=== PATIENT | female | born 1970 | race Caucasian/White ===

== ENCOUNTER 2017-07-23 02:36 | Emergency (ER) | payer MEDICARE ==
[2017-07-23] MEDS ORDERED: Morphine 2 MG/ML SYRINGE ONE (02:58)
[2017-07-23] MEDS ORDERED: Ondansetron HCl/PF 4 MG/2 ML Vial ONE (02:58)
[2017-07-23 03:24] LABS: #Lymphocytes 2.2 thou/uL (1.20-3.40); #Monocytes 0.5 thou/uL (0.11-0.59); #Neutrophils 5.5 thou/uL (1.40-6.50); %Basophils 0.2 % (0.0-1.0); %Eosinophils 0.5 % (0.0-10.0); %Lymphocytes 26.3 % (21.0-51.0); %Monocytes 6.4 % (0.0-10.0); Hematocrit 38.2 % (36.0-47.0); Mean Platelet Volume 7.8 fL (7.4-10.4); Red Blood Cell (RBC) Count 4.21 mill/uL (4.20-5.40); White Blood Cell (WBC) Count 8.2 thou/uL (4.8-10.8)
[2017-07-23 03:43] LABS: ALT (SGPT) Less than 7 U/L (8-55); AST (SGOT) 11 U/L (5-34); Alkaline Phosphatase 77 U/L (40-150); Anion Gap 11 mmol/L (10-20); BUN (Urea Nitrogen) 15 mg/dL (7.0-18.7); Bilirubin, Total 0.5 mg/dL (0.2-1.2); Calc. Creatinine Clearance 0 mL/min (70-130); Calcium 9.9 mg/dL (7.8-10.44); Carbon Dioxide 29 mmol/L (22-29); Chloride 100 mmol/L (98-107); Estimated GFR-MDRD 82; Globulin 2.9 g/dL (2.4-3.5); Lipase 6 U/L (8-78); Magnesium 1.9 mg/dL (1.6-2.6); Protein, Total 7.2 g/dL (6.0-8.3)
[2017-07-23] MEDS ORDERED: Ketorolac Tromethamine 30 MG/ML VIAL ONE (03:48)
[2017-07-23 04:33] LABS: Bilirubin Negative (Negative); Blood, Urine Large (Negative); Glucose, Urine (Dipstick) Negative (Negative); Ketone, Urine 15 mg/dL (Negative); Nitrite Negative (Negative); Protein, Urine (Dipstick) 30 mg/dL (Neg-Trace)
[2017-07-23 04:38] LABS: Bacteria/HPF None Seen HPF (None Seen); Hyaline Casts/LPF 0-3 HYALINE CAST LPF (0-3 Hyaline); RBC/HPF GREATER THAN 50-TNTC HPF (0-3); Squamous Epithelial None Seen HPF (0-3)
[2017-07-23] MEDS ORDERED: Sodium Chloride 0.9% 100 ML ONE (05:21)
[2017-07-23] MEDS ORDERED: cefTRIAXone\\ROCEPHIN 1 GM VIAL ONE (05:21)
--- NOTE | 2017-07-23 11:01 | CT ---
PRELIMINARY REPORT/[facility]/EMERGENCY AFTER HOURS PROCEDURE: EXAM: CT Abdomen and Pelvis With Intravenous Contrast EXAM DATE/TIME: Exam ordered 07/23/2017 3:58 AM CLINICAL HISTORY: 47 years old, female; Pain; Abdominal pain; Generalized; Patient HX: F47 presents to ed for abdomina l pain. Pt reports abdominal pain that started 2-3 hours ago and radiates to her back. Pt reports na usea and vomiting the past few days. Pt denies diarrhea. Pt reports she was real nauseated so she la id down in bed and began to notice increasingly worse abdominal pain. Pt denies HX of similar sympto ms. Pt denies numbness/tingling in legs. TECHNIQUE: Axial computed tomography images of the abdomen and pelvis with intravenous contrast. Coronal reformatted images were created and reviewed. CONTRAST: 95 mL of ISOVUE 370 administered intravenously. COMPARISON: No relevant prior studies available. FINDINGS: Lower thorax: No acute findings. ABDOMEN: Liver: Unremarkable. No mass. Gallbladder and bile ducts: Prior cholecystectomy. There is intra-and extrahepatic biliary ductal di latation. Findings are likely a result of age and postcholecystectomy state given that there is no v isible obstructing choledocholithiasis or pancreatic head mass and the distal CBD tapers normally as it approaches the duodenum. Pancreas: Unremarkable. No mass. No ductal dilation. Spleen: Unremarkable. No splenomegaly. Adrenals: Unremarkable. No mass. Kidneys and ureters: 4 mm obstructing stone in the mid right ureter causing moderate obstructive uro ahsley. Stomach and bowel: Unremarkable. No obstruction. No mucosal thickening. Appendix: Normal appendix. PELVIS: Bladder: Unremarkable. No mass. Reproductive: Prior hysterectomy. ABDOMEN and PELVIS: Intraperitoneal space: Unremarkable. No free air. No significant fluid collection. Bones/joints: No acute fracture. No dislocation. Soft tissues: Unremarkable. Vasculature: Unremarkable. No abdominal aortic aneurysm. Lymph nodes: Unremarkable. No enlarged lymph nodes. IMPRESSION: 4 mm obstructing stone in the mid right ureter causing moderate obstructive uropathy. Thank you for allowing us to participate in the care of your patient. Dictated and Authenticated by: Win Ott MD 07/23/2017 4:31 AM Central Time ([place] \T\ [place]) FINAL REPORT CT ABDOMEN AND PELVIS WITH CONTRAST: HISTORY: Right lower quadrant pain, nausea, and vomiting. COMPARISON: CT stone protocol without contrast 11/13/14. FINDINGS/IMPRESSION: Findings and impression are concordant with the preliminary report. The numerous old compression fr actures are similar. POS: [facility]
[2017-07-23] MEDS ORDERED: ISOVUE-370 76%-LOCM 1 ML ONE (16:05)
== END 2017-07-23 07:33 | disposition home or self-care (01) ==
LOC: ERS 02:36
DX: N20.1 Calculus of ureter (principal); Z79.891 Long term (current) use of opiate analgesic; Z79.899 Other long term (current) drug therapy
CPT/HCPCS: 74177; 80053; 81003; 81015; 83690; 83735; 84702; 85025; 93005; 96361; 96365; 96375; J0696; J1170; J1885; J2270; J2405; J7050

== ENCOUNTER 2022-09-07 09:06 | Inpatient (IN) | payer MEDICARE ==
[2022-09-07 09:44] LABS: Base Excess -25.2 mEq/L (-2.0 to +3.0); Calcium, Ionized (venous) 1.21 mmol/L (1.16-1.32); Chloride (VBG) 107 mmol/L (98-106); Hemoglobin (Hb) 12.7 g/dL (11.7-16.0)
[2022-09-07 09:45] LABS: Actual Bicarbonate (HCO3v) 4 mEq/L (22-28); pH (venous) 7.01 (7.32-7.43)
[2022-09-07 09:47] LABS: Hemoglobin 11.7 g/dL (12.0-16.0); Mean Corpuscular HGB CONC 33.4 g/dL (32.0-36.0); Mean Corpuscular Hemoglobin 30.3 pg (27.0-31.0); Mean Corpuscular Volume 90.5 fl (78.0-98.0); Mean Platelet Volume 8.7 fL (7.4-10.4); Platelet Count 280 10x3/uL (130-400); RBC Distribution Width 12.3 % (11.5-14.5); Red Blood Cell (RBC) Count 3.87 mill/uL (4.20-5.40); White Blood Cell (WBC) Count 30.8 10x3/uL (4.8-10.8)
[2022-09-07 10:10] LABS: ALT (SGPT) 26 U/L (8-55); AST (SGOT) 42 U/L (5-34); Albumin 3.8 g/dL (3.5-5.0); Alkaline Phosphatase 93 U/L (40-110); BUN (Urea Nitrogen) 29 mg/dL (9.8-20.1); Bilirubin, Total 0.4 mg/dL (0.2-1.2); Calc. Creatinine Clearance 0 mL/min (70-130); Calcium 9.3 mg/dL (7.8-10.44); Chloride 108 mmol/L (98-107); Estimated GFR 19; Globulin 2.4 g/dL (2.4-3.5); Glucose 63 mg/dL (70-105); Protein, Total 6.2 g/dL (6.0-8.3); Sodium 134 mmol/L (136-145)
[2022-09-07 10:11] LABS: Band 14 % (5-11); Hypochromia SLIGHT = 6-15 cells (100X) (0-5/hpf); Lymphocytes 7 % (21-51); MDiff Complete? YES; Monocytes 14 % (0-10); Neutrophil 65 % (42-75); Platelet Morphology Comment Appears Adequate
[2022-09-07 10:14] LABS: Carbon Dioxide Less than 8 mmol/L (22-29)
[2022-09-07 10:18] LABS: Acetaminophen Less than 10.0 mcg/mL (10.0-30.0); Alcohol Less than 10 mg/dL (Less than 10); CK (CPK) 1665 U/L (29-168); Magnesium 2.8 mg/dL (1.6-2.6); Salicylate Less than 8.0 mg/dL (15.0-30.0)
[2022-09-07 10:49] LABS: CKMB 9.2 ng/mL (0-6.6)
[2022-09-07] MEDS ORDERED: Iopamidol-370 76% 500 ML 1 ML ONE (10:52)
[2022-09-07] MEDS ORDERED: Piperacillin/Tazobactam 4.5 GM VIAL ONE (11:02)
[2022-09-07 11:17] LABS: Lipase 2119 U/L (8-78)
[2022-09-07 13:00] LABS: Base Excess -24.8 mEq/L (-2.0 to +3.0); Calcium, Ionized (venous) 1.03 mmol/L (1.16-1.32); Chloride (VBG) 110 mmol/L (98-106); Hemoglobin (Hb) 12.9 g/dL (11.7-16.0); Potassium (VBG) 4.19 mmol/L (3.70-5.30); Sodium 136.6 mmol/L (133-146)
[2022-09-07 13:06] LABS: Actual Bicarbonate (HCO3v) 3 mEq/L (22-28); pH (venous) 7.06 (7.32-7.43)
[2022-09-07] MEDS ORDERED: Sodium Bicarb 50 MEQ/50 ML VIAL ONE ×2 (13:12→16:30)
[2022-09-07 13:35] LABS: ALT (SGPT) 31 U/L (8-55); AST (SGOT) 67 U/L (5-34); Albumin 3.6 g/dL (3.5-5.0); Alkaline Phosphatase 93 U/L (40-110); BUN (Urea Nitrogen) 30 mg/dL (9.8-20.1); Bilirubin, Total 0.4 mg/dL (0.2-1.2); Calc. Creatinine Clearance 0 mL/min (70-130); Calcium 9.1 mg/dL (7.8-10.44); Chloride 111 mmol/L (98-107); Estimated GFR 21; Globulin 2.3 g/dL (2.4-3.5); Glucose 65 mg/dL (70-105); Potassium 4.3 mmol/L (3.5-5.1); Protein, Total 5.9 g/dL (6.0-8.3); Sodium 134 mmol/L (136-145)
[2022-09-07 13:38] LABS: Bacteria/HPF 2+ HPF (None Seen); Bilirubin Negative (Negative); Blood, Urine 3+ (Negative); Glucose, Urine (Dipstick) Normal (Negative); Ketone, Urine 100 mg/dL (Negative); Leukocyte 500 Leu/uL (Negative); Nitrite Negative (Negative); Protein, Urine (Dipstick) 100 mg/dL (Neg-Trace); Specific Gravity, Urine 1.023 (1.002-1.036); Squamous Epithelial 0-3 HPF (0-3); Urobilinogen Normal mg/dL (Less than 2); WBC/HPF 21-50 HPF (0-3); pH, Urine 5.5 (5.0-9.0)
[2022-09-07 13:40] LABS: Carbon Dioxide Less than 8 mmol/L (22-29)
[2022-09-07 13:44] LABS: Amphetamine Not Detected (NotDetected); Barbiturates Screen Not Detected (NotDetected); Benzodiazepine Screen Detected (NotDetected); Cocaine Metabolite Screen Not Detected (NotDetected); Methadone Not Detected (NotDetected); Methamphetamine Not Detected (NotDetected); Opiate Screen Not Detected (NotDetected); Oxycodone Screen Not Detected (NotDetected); Phencyclidine (PCP) Not Detected (NotDetected); THC/Cannabinoid Screen Not Detected (NotDetected); Tricyclic Screen Not Detected (NotDetected)
[2022-09-07 13:45] LABS: Clarity Hazy (Clear)
[2022-09-07] MEDS ORDERED: Sodium Bicarbonate 150 MEQ in Dextrose 5% in Water 1,000 ML IV SCH ×2 (13:45→15:30)
[2022-09-07 15:21] LABS: Actual Bicarbonate (HCO3v) 6 mEq/L (22-28); Analyzer IN Cardio ER; Base Excess -21.1 mEq/L (-2.0 to +3.0); Calcium, Ionized (venous) 1.32 mmol/L (1.16-1.32); Chloride (VBG) 109 mmol/L (98-106); Hemoglobin (Hb) 11.9 g/dL (11.7-16.0); Potassium (VBG) 3.67 mmol/L (3.70-5.30); Sodium 138.7 mmol/L (133-146); pH (venous) 7.13 (7.32-7.43)
[2022-09-07] MEDS ORDERED: SODIUM BICARBONATE IV SCH (15:30)
[2022-09-07] MEDS ORDERED: WATER IV SCH (15:30)
[2022-09-07] MEDS ORDERED: DEXTROSE 5% IV SCH (15:30)
[2022-09-07 15:43] LABS: Troponin I 0.131 ng/mL (< 0.028)
[2022-09-07 15:48] LABS: BUN (Urea Nitrogen) 34 mg/dL (9.8-20.1); Calc. Creatinine Clearance 0 mL/min (70-130); Calcium 8.9 mg/dL (7.8-10.44); Chloride 112 mmol/L (98-107); Estimated GFR 22; Glucose 86 mg/dL (70-105); Potassium 3.6 mmol/L (3.5-5.1); Sodium 136 mmol/L (136-145)
[2022-09-07 15:52] LABS: Carbon Dioxide Less than 8 mmol/L (22-29)
[2022-09-07 16:11] LABS: Base Excess -21.2 mEq/L (-2.0 to +3.0); Chloride (VBG) 110 mmol/L (98-106); Hemoglobin (Hb) 12.5 g/dL (11.7-16.0); Potassium (VBG) 3.81 mmol/L (3.70-5.30); Sodium 139.7 mmol/L (133-146)
[2022-09-07 16:14] LABS: Actual Bicarbonate (HCO3v) 7 mEq/L (22-28); pH (venous) 7.11 (7.32-7.43)
[2022-09-07 20:17] LABS: Troponin I 0.155 ng/mL (< 0.028)
[2022-09-07 20:21] LABS: Anion Gap 22 mmol/L (10-20); BUN (Urea Nitrogen) 34 mg/dL (9.8-20.1); Calc. Creatinine Clearance 0 mL/min (70-130); Carbon Dioxide 10 mmol/L (22-29); Chloride 110 mmol/L (98-107); Estimated GFR 26; Glucose 127 mg/dL (70-105); Potassium 3.1 mmol/L (3.5-5.1); Sodium 139 mmol/L (136-145)
[2022-09-07] MEDS ORDERED: Sodium Chloride 0.9% 1,000 ML IV SCH (20:30)
[2022-09-07 20:38] LABS: Analyzer IN Cardio ER; Base Excess (BEa) -11.1 mEq/L (-2.0 to +3.0); Calcium, Ionized (arterial) 1.25 mmol/L (1.12-1.30); Carboxyhemoglobin (COHb) 0.2 gm% (0.0-3.0); Hemoglobin (Hb) 11.4 g/dL (12.0-16.0); Potassium - ABG Lab 2.78 mmol/L (3.70-5.30); pH, Arterial 7.37 (7.35-7.45)
[2022-09-07 20:47] LABS: Actual Bicarbonate (HCO3a) 12.4 mEq/L (22-28); CO2 Tension 22.1 mmHg (35.0-45.0); Puncture Site LRA
[2022-09-07 20:48] LABS: ALV-art Gradient 52.105 mmHg (0-20)
[2022-09-07] MEDS ORDERED: Famotidine/PF 20 mg/2ml Vial SLOW IVP SCH (21:00)
[2022-09-07] MEDS ORDERED: VANCOMYCIN 1.25 GM/250 ML BAG 1.25 GM in Premix Bag 1 BAG IVPB SCH ×2 (21:00→22:15)
[2022-09-07] MEDS ORDERED: Metoprolol Tartrate 5 MG/5 ML VIAL ONE (22:01)
[2022-09-07] MEDS: Metoprolol Tartrate 5 MG/5 ML VIAL IVP PRN (22:07)
[2022-09-07] MEDS ORDERED: Heparin 10,000 UNITS/ 10 ML VIAL ONE (22:43)
[2022-09-07] MEDS ORDERED: Pantoprazole 40 MG VIAL ONE (22:43)
[2022-09-07] MEDS: Pantoprazole 40 MG VIAL IVP SCH (22:59)
[2022-09-07] MEDS ORDERED: Cefepime 1 GM in Sodium Chloride 0.9% 100 ML IVPB SCH (23:00)
[2022-09-07] MEDS: Heparin 5,000 UNITS/ML VIAL SC SCH (23:01)
[2022-09-07] MEDS: metroNIDAZOLE 250 MG in Admixture Fee 2 EACH IVPB SCH (23:06)
[2022-09-07] MEDS ORDERED: Potassium Chloride 20 MEQ/100 ML PREMIX BAG ONE (23:09)
[2022-09-07] MEDS: Potassium Chloride 20 MEQ in Premix Bag 1 BAG IVPB SCH (23:14)
[2022-09-08] MEDS ORDERED: Metoprolol Tartrate 5 MG/5 ML VIAL ONE ×2 (00:15→01:55)
[2022-09-08] MEDS: Metoprolol Tartrate 5 MG/5 ML VIAL IVP PRN (00:51)
[2022-09-08] MEDS ORDERED: Cefepime 1 GM VIAL ONE (00:52)
[2022-09-08 01:17] LABS: Anion Gap 19 mmol/L (10-20); BUN (Urea Nitrogen) 33 mg/dL (9.8-20.1); Calc. Creatinine Clearance 36 mL/min (70-130); Calcium 8.7 mg/dL (7.8-10.44); Carbon Dioxide 13 mmol/L (22-29); Chloride 113 mmol/L (98-107); Estimated GFR 30; Glucose 124 mg/dL (70-105); Potassium 3.1 mmol/L (3.5-5.1); Sodium 142 mmol/L (136-145)
[2022-09-08] MEDS ORDERED: Metoprolol Tartrate 5 MG/5 ML VIAL IVP PRN (01:28)
[2022-09-08] MEDS ORDERED: Electrolyte Replacement Protocol 1 EACH FS PRN (01:30)
[2022-09-08] MEDS: Sodium Bicarbonate 150 MEQ in Dextrose 5% in Water 1,000 ML IV SCH ×3 (02:04→18:16)
[2022-09-08] MEDS: Heparin 5,000 UNITS/ML VIAL SC SCH ×4 (03:18→20:15)
[2022-09-08] MEDS: Potassium Chloride 20 MEQ in Premix Bag 1 BAG IVPB SCH ×7 (03:54→15:05)
[2022-09-08 04:36] LABS: ALT (SGPT) 44 U/L (8-55); AST (SGOT) 99 U/L (5-34); Albumin 3.1 g/dL (3.5-5.0); Alkaline Phosphatase 79 U/L (40-110); Anion Gap 17 mmol/L (10-20); BUN (Urea Nitrogen) 34 mg/dL (9.8-20.1); Bilirubin, Total 0.7 mg/dL (0.2-1.2); Calc. Creatinine Clearance 38 mL/min (70-130); Calcium 8.9 mg/dL (7.8-10.44); Carbon Dioxide 14 mmol/L (22-29); Chloride 112 mmol/L (98-107); Estimated GFR 33; Globulin 2.1 g/dL (2.4-3.5); Glucose 168 mg/dL (70-105); Potassium 2.9 mmol/L (3.5-5.1); Protein, Total 5.2 g/dL (6.0-8.3); Sodium 140 mmol/L (136-145)
[2022-09-08 05:02] LABS: SARS-CoV-2 NAA Rapid Test Not Detected (NotDetected)
[2022-09-08 05:15] LABS: #Lymphocytes 1.1 thou/uL (1.20-3.40); #Monocytes 1.7 thou/uL (0.11-0.59); #Neutrophils 15.6 thou/uL (1.40-6.50); %Basophils 0.1 % (0.0-1.0); %Eosinophils 0.1 % (0.0-10.0); %Monocytes 9.4 % (0.0-10.0); %Neutrophils 84.4 % (42.0-75.0); Mean Corpuscular HGB CONC 35.2 g/dL (32.0-36.0); Mean Corpuscular Hemoglobin 30.8 pg (27.0-31.0); Mean Corpuscular Volume 87.6 fl (78.0-98.0); Mean Platelet Volume 8.9 fL (7.4-10.4); Platelet Count 156 10x3/uL (130-400); RBC Distribution Width 12.2 % (11.5-14.5); White Blood Cell (WBC) Count 18.5 10x3/uL (4.8-10.8)
[2022-09-08] MEDS: metroNIDAZOLE 250 MG in Admixture Fee 2 EACH IVPB SCH ×3 (06:54→22:02)
[2022-09-08] MEDS: Pantoprazole 40 MG VIAL IVP SCH ×2 (09:16→19:28)
[2022-09-08] MEDS: Cefepime 1 GM in Sodium Chloride 0.9% 100 ML IVPB SCH ×2 (12:03→22:43)
[2022-09-08] MEDS: Acetaminophen 325 MG TAB PO PRN ×2 (15:06→23:19)
[2022-09-08] MEDS ORDERED: NIFEdipine XL 60 MG TAB PO SCH (16:32)
[2022-09-08 17:42] LABS: Anion Gap 12 mmol/L (10-20); BUN (Urea Nitrogen) 30 mg/dL (9.8-20.1); Calc. Creatinine Clearance 57 mL/min (70-130); Calcium 8.7 mg/dL (7.8-10.44); Carbon Dioxide 26 mmol/L (22-29); Chloride 104 mmol/L (98-107); Estimated GFR 53; Glucose 199 mg/dL (70-105); Potassium 3.2 mmol/L (3.5-5.1); Sodium 139 mmol/L (136-145)
[2022-09-08] MEDS: Ondansetron PF 4 MG/2 ML Vial IVP PRN (19:28)
[2022-09-08] MEDS: Trospium 20 MG TAB PO SCH (20:15)
[2022-09-08] MEDS: Metoprolol Tartrate 25 MG TAB PO SCH (20:15)
[2022-09-08] MEDS ORDERED: Vancomycin HCl 500 MG in Sodium Chloride 0.9% 100 ML IVPB SCH (21:00)
[2022-09-08] MEDS ORDERED: Sodium Chloride 0.9% 1,000 ML IV SCH (21:15)
[2022-09-09 04:36] LABS: Anion Gap 10 mmol/L (10-20); BUN (Urea Nitrogen) 27 mg/dL (9.8-20.1); Calc. Creatinine Clearance 64 mL/min (70-130); Calcium 8.8 mg/dL (7.8-10.44); Carbon Dioxide 33 mmol/L (22-29); Chloride 100 mmol/L (98-107); Estimated GFR 69; Glucose 151 mg/dL (70-105); Lipase 535 U/L (8-78); Potassium 2.8 mmol/L (3.5-5.1); Sodium 140 mmol/L (136-145)
[2022-09-09 04:53] LABS: HBSAg Index 0.65 S/CO (0-0.99); Hep B Surf Ag Non-Reactive S/CO (NonReactive); Hep C IgG Ab Non-Reactive (NonReactive); Hep C Index 0.05 S/CO (0-0.79)
[2022-09-09] MEDS: Acetaminophen 325 MG TAB PO PRN ×3 (05:43→16:46)
[2022-09-09] MEDS: metroNIDAZOLE 250 MG in Admixture Fee 2 EACH IVPB SCH ×3 (05:43→21:18)
[2022-09-09 05:56] LABS: Hep B Surf AB Reactive (NonReactive)
[2022-09-09] MEDS: Potassium Chloride 20 MEQ TAB PO SCH ×3 (08:32→19:27)
[2022-09-09] MEDS: Trospium 20 MG TAB PO SCH ×2 (08:32→19:28)
[2022-09-09] MEDS: Heparin 5,000 UNITS/ML VIAL SC SCH ×3 (08:32→19:27)
[2022-09-09] MEDS: NIFEdipine XL 30 MG TAB PO SCH (08:32)
[2022-09-09] MEDS: DULoxetine 60 MG CAP PO SCH (08:32)
[2022-09-09] MEDS: Metoprolol Tartrate 25 MG TAB PO SCH ×2 (08:32→19:28)
[2022-09-09] MEDS: Pantoprazole 40 MG VIAL IVP SCH (08:33)
[2022-09-09] MEDS: Cefepime 1 GM in Sodium Chloride 0.9% 100 ML IVPB SCH ×2 (11:56→22:03)
[2022-09-09 17:07] LABS: Bilirubin Negative (Negative); Blood, Urine 1+ (Negative); Clarity Clear (Clear); Glucose, Urine (Dipstick) 70 mg/dL (Negative); Ketone, Urine Negative (Negative); Leukocyte 250 Leu/uL (Negative); Nitrite Negative (Negative); Protein, Urine (Dipstick) 30 mg/dL (Neg-Trace); RBC/HPF 0-3 HPF (0-3); Specific Gravity, Urine 1.011 (1.002-1.036); Squamous Epithelial 0-3 HPF (0-3); Urobilinogen Normal mg/dL (Less than 2)
[2022-09-09 17:08] LABS: Bacteria/HPF 1+ HPF (None Seen)
[2022-09-09] MEDS ORDERED: Buprenorphine HCl 2 MG SL TAB PO SCH ×2 (18:45→21:00)
[2022-09-09] MEDS: Ondansetron PF 4 MG/2 ML Vial IVP PRN (19:27)
[2022-09-09] MEDS: Mirtazapine 30 MG TAB PO SCH (20:57)
[2022-09-10] MEDS: Potassium Chloride 20 MEQ TAB PO SCH (01:24)
[2022-09-10] MEDS: metroNIDAZOLE 250 MG in Admixture Fee 2 EACH IVPB SCH ×3 (05:08→21:08)
[2022-09-10 05:18] VITALS: BMI 21.8
[2022-09-10 07:40] LABS: Anion Gap 11 mmol/L (10-20); BUN (Urea Nitrogen) 22 mg/dL (9.8-20.1); Calc. Creatinine Clearance 80 mL/min (70-130); Calcium 9.2 mg/dL (7.8-10.44); Carbon Dioxide 27 mmol/L (22-29); Chloride 102 mmol/L (98-107); Estimated GFR 93; Glucose 117 mg/dL (70-105); Potassium 4.6 mmol/L (3.5-5.1); Sodium 135 mmol/L (136-145)
[2022-09-10] MEDS: Buprenorphine HCl 2 MG SL TAB PO SCH ×2 (09:12→20:21)
[2022-09-10] MEDS: Trospium 20 MG TAB PO SCH ×2 (09:13→20:22)
[2022-09-10] MEDS: DULoxetine 60 MG CAP PO SCH (09:13)
[2022-09-10] MEDS: NIFEdipine XL 30 MG TAB PO SCH (09:13)
[2022-09-10] MEDS: Ondansetron PF 4 MG/2 ML Vial IVP PRN ×2 (09:16→14:51)
[2022-09-10] MEDS: Metoprolol Tartrate 25 MG TAB PO SCH ×2 (09:16→20:25)
[2022-09-10] MEDS: Heparin 5,000 UNITS/ML VIAL SC SCH ×3 (09:16→20:20)
[2022-09-10] MEDS: FLUoxetine HCl 20 MG CAP PO SCH (09:16)
[2022-09-10] MEDS: Acetaminophen 325 MG TAB PO PRN ×2 (09:17→20:22)
[2022-09-10 09:32] LABS: Band 18 % (5-11); Eosinophils 1 % (0-10); Hemoglobin 9.5 g/dL (12.0-16.0); Lymphocytes 13 % (21-51); MDiff Complete? YES; Mean Corpuscular HGB CONC 34.8 g/dL (32.0-36.0); Mean Corpuscular Hemoglobin 30.9 pg (27.0-31.0); Mean Corpuscular Volume 88.7 fl (78.0-98.0); Mean Platelet Volume 9.5 fL (7.4-10.4); Monocytes 3 % (0-10); Neutrophil 64 % (42-75); Platelet Count 74 10x3/uL (130-400); Platelet Morphology Comment Appears Decreased; Polychromasia SLIGHT = 2-3 cells (100X) (0-2/hpf); RBC Distribution Width 12.6 % (11.5-14.5); Reactive Lymphocytes 1 % (0-10); Red Blood Cell (RBC) Count 3.07 mill/uL (4.20-5.40); White Blood Cell (WBC) Count 14.8 10x3/uL (4.8-10.8)
[2022-09-10] MEDS: Sodium Chloride 0.9% 1,000 ML IV SCH (10:26)
[2022-09-10] MEDS: Cefepime 2 GM in Sodium Chloride 0.9% 100 ML IVPB SCH ×2 (10:27→22:02)
[2022-09-10] MEDS: Mirtazapine 30 MG TAB PO SCH (20:21)
[2022-09-10] MEDS ORDERED: traZODone HCl 50 MG TAB PO ONE (21:00)
[2022-09-11] MEDS: metroNIDAZOLE 250 MG in Admixture Fee 2 EACH IVPB SCH (05:53)
[2022-09-11] MEDS: Ondansetron PF 4 MG/2 ML Vial IVP PRN ×2 (05:54→12:51)
[2022-09-11] MEDS: Acetaminophen 325 MG TAB PO PRN ×3 (05:54→19:54)
[2022-09-11 07:10] LABS: Anion Gap 12 mmol/L (10-20); BUN (Urea Nitrogen) 16 mg/dL (9.8-20.1); Calc. Creatinine Clearance 81 mL/min (70-130); Carbon Dioxide 23 mmol/L (22-29); Chloride 103 mmol/L (98-107); Estimated GFR 95; Glucose 84 mg/dL (70-105); Potassium 4.1 mmol/L (3.5-5.1); Sodium 134 mmol/L (136-145)
[2022-09-11] MEDS: Trospium 20 MG TAB PO SCH ×2 (08:32→19:55)
[2022-09-11] MEDS: Heparin 5,000 UNITS/ML VIAL SC SCH ×3 (08:32→20:00)
[2022-09-11] MEDS: DULoxetine 60 MG CAP PO SCH (08:33)
[2022-09-11] MEDS: FLUoxetine HCl 20 MG CAP PO SCH (08:33)
[2022-09-11] MEDS: NIFEdipine XL 30 MG TAB PO SCH (08:33)
[2022-09-11] MEDS: Polyethylene Glycol 3350 17 GM Packet PO SCH (08:33)
[2022-09-11] MEDS: Metoprolol Tartrate 25 MG TAB PO SCH ×2 (08:33→20:43)
[2022-09-11] MEDS: Buprenorphine HCl 2 MG SL TAB PO SCH ×2 (08:34→19:58)
[2022-09-11] MEDS: Cefepime 2 GM in Sodium Chloride 0.9% 100 ML IVPB SCH (11:04)
[2022-09-11] MEDS: Sodium Chloride 0.9% 1,000 ML IV SCH (11:06)
[2022-09-11] MEDS: ALPRAZolam 1 MG TAB PO PRN ×2 (15:25→22:11)
[2022-09-11] MEDS: Mirtazapine 30 MG TAB PO SCH (19:55)
[2022-09-12] MEDS: Heparin 5,000 UNITS/ML VIAL SC SCH ×3 (08:45→21:28)
[2022-09-12] MEDS: Polyethylene Glycol 3350 17 GM Packet PO SCH (08:45)
[2022-09-12] MEDS: NIFEdipine XL 30 MG TAB PO SCH (08:46)
[2022-09-12] MEDS: DULoxetine 60 MG CAP PO SCH (08:46)
[2022-09-12] MEDS: ALPRAZolam 1 MG TAB PO PRN (08:46)
[2022-09-12] MEDS: Trospium 20 MG TAB PO SCH ×2 (08:46→21:27)
[2022-09-12] MEDS: Metoprolol Tartrate 25 MG TAB PO SCH ×2 (08:46→21:27)
[2022-09-12] MEDS: FLUoxetine HCl 20 MG CAP PO SCH (08:46)
[2022-09-12] MEDS: Buprenorphine HCl 2 MG SL TAB PO SCH ×2 (10:01→21:30)
[2022-09-12] MEDS: Loperamide HCl 2 MG CAP PO PRN ×2 (13:01→15:24)
[2022-09-12] MEDS: Mirtazapine 30 MG TAB PO SCH (21:27)
[2022-09-12] MEDS: Acetaminophen 325 MG TAB PO PRN (21:30)
[2022-09-12] MEDS: Ondansetron PF 4 MG/2 ML Vial IVP PRN (21:34)
[2022-09-13 08:12] VITALS: BP 103/71; TEMP 98.1
[2022-09-13] MEDS ORDERED: Buprenorphine 8mg/Naloxone 2mg per 1 FILM SL SCH ×2 (09:30→21:00)
[2022-09-13] MEDS: NIFEdipine XL 30 MG TAB PO SCH (10:17)
[2022-09-13] MEDS: FLUoxetine HCl 20 MG CAP PO SCH (10:17)
[2022-09-13] MEDS: Trospium 20 MG TAB PO SCH (10:18)
[2022-09-13] MEDS: Metoprolol Tartrate 25 MG TAB PO SCH (10:18)
[2022-09-13] MEDS: Heparin 5,000 UNITS/ML VIAL SC SCH (10:18)
[2022-09-13] MEDS: Polyethylene Glycol 3350 17 GM Packet PO SCH (10:18)
[2022-09-13] MEDS: DULoxetine 60 MG CAP PO SCH (10:18)
[2022-09-13] MEDS: Buprenorphine HCl 2 MG SL TAB PO SCH (10:24)
== END 2022-09-13 14:28 | disposition home or self-care (01) | DRG 871 ==
LOC: ERS 09:06 → ERHOLD 13:41 → IMCU/EMU 09-08 02:43 → T4-B 09-09 20:46
PROVIDERS: ADMIT Internal Medicine; ATTEND Internal Medicine
PROC: 3E03329 Introduction of Other Anti-infective into Peripheral Vein, Percutaneous Approach (ICD-10-PCS; principal; 2022-09-07)
PROC: 06HY33Z Insertion of Infusion Device into Lower Vein, Percutaneous Approach (ICD-10-PCS; 2022-09-07)
DX: A41.9 Sepsis, unspecified organism (principal); Z20.822 Contact with and (suspected) exposure to COVID-19; G93.41 Metabolic encephalopathy; K85.90 Acute pancreatitis without necrosis or infection, unspecified; E87.20 Acidosis, unspecified; N17.9 Acute kidney failure, unspecified; E87.4 Mixed disorder of acid-base balance; M62.82 Rhabdomyolysis; N12 Tubulo-interstitial nephritis, not specified as acute or chronic; M80.08XA Age-related osteoporosis with current pathological fracture, vertebra(e), initial encounter for fracture; M80.0AXA Age-related osteoporosis with current pathological fracture, other site, initial encounter for fracture; R65.20 Severe sepsis without septic shock; E86.0 Dehydration; F32.A Depression, unspecified; N18.9 Chronic kidney disease, unspecified; D63.1 Anemia in chronic kidney disease; F15.10 Other stimulant abuse, uncomplicated; I12.9 Hypertensive chronic kidney disease with stage 1 through stage 4 chronic kidney disease, or unspecified chronic kidney disease; E88.09 Other disorders of plasma-protein metabolism, not elsewhere classified; Z78.1 Physical restraint status; Z79.899 Other long term (current) drug therapy; Z90.49 Acquired absence of other specified parts of digestive tract; Z90.710 Acquired absence of both cervix and uterus
CPT/HCPCS: 36415; 36600; 70450; 71260; 72125; 74177; 80048; 80053; 80306; 80307; 81003; 81015; 82550; 82553; 82805; 83605; 83690; 83735; 83880; 83930; 84478; 84484; 85014; 85018; 85025; 86706; 86708; 86803; 86900; 86901; 87040; 87340; 93005; 93010; C9113; J0571; J0692; J1644; J2405; J2543; J3370; J3480; J3490; J7050; J7070; Q9967

== ENCOUNTER 2023-04-30 17:52 | Inpatient (IN) | payer MEDICARE ==
[~2023-04-30 17:52] MED LIST: Iopamidol-370 76% 500 ML MDV (1 ML CHARGE) ONE
[2023-04-30] MEDS ORDERED: Dicyclomine 20 MG TAB ONE (18:30)
[2023-04-30] MEDS ORDERED: Ondansetron PF 4 MG/2 ML Vial ONE (18:30)
[2023-04-30] MEDS ORDERED: Acetaminophen 500 MG TAB ONE (18:30)
[2023-04-30 18:36] LABS: #Basophils 0.1 thou/uL (0.0-0.2); #Monocytes 1.2 thou/uL (0.11-0.59); #Neutrophils 8.9 thou/uL (1.40-6.50); %Basophils 0.4 % (0.0-1.0); %Lymphocytes 18.6 % (21.0-51.0); %Monocytes 9.5 % (0.0-10.0); %Neutrophils 71.3 % (42.0-75.0); Hemoglobin 11.8 g/dL (12.0-16.0); Mean Corpuscular HGB CONC 35.9 g/dL (32.0-36.0); Mean Corpuscular Hemoglobin 30.5 pg (27.0-31.0); Mean Platelet Volume 10.6 fL (7.4-10.4); Platelet Count 257 10x3/uL (130-400); RBC Distribution Width 12.7 % (11.5-14.5); Red Blood Cell (RBC) Count 3.87 mill/uL (4.20-5.40); White Blood Cell (WBC) Count 12.4 10x3/uL (4.8-10.8)
[2023-04-30 19:02] LABS: ALT (SGPT) 27 U/L (8-55); AST (SGOT) 44 U/L (5-34); Albumin 4.6 g/dL (3.5-5.0); Alkaline Phosphatase 116 U/L (40-110); Anion Gap 21 mmol/L (10-20); BUN (Urea Nitrogen) 26 mg/dL (9.8-20.1); Bilirubin, Total 0.6 mg/dL (0.2-1.2); Calc. Creatinine Clearance 0 mL/min (70-130); Calcium 10.1 mg/dL (7.8-10.44); Carbon Dioxide 14 mmol/L (22-29); Chloride 102 mmol/L (98-107); Estimated GFR 73; Glucose 97 mg/dL (70-105); Potassium 3.8 mmol/L (3.5-5.1); Protein, Total 7.6 g/dL (6.0-8.3); Sodium 133 mmol/L (136-145)
[2023-04-30 19:48] LABS: Amphetamine Not Detected (NotDetected); Barbiturates Screen Not Detected (NotDetected); Benzodiazepine Screen Detected (NotDetected); Cocaine Metabolite Screen Not Detected (NotDetected); Methadone Not Detected (NotDetected); Methamphetamine Not Detected (NotDetected); Opiate Screen Not Detected (NotDetected); Oxycodone Screen Not Detected (NotDetected); Phencyclidine (PCP) Not Detected (NotDetected); THC/Cannabinoid Screen Detected (NotDetected); Tricyclic Screen Not Detected (NotDetected)
[2023-04-30 19:49] LABS: Acetaminophen Less than 10 mcg/mL (10.0-30.0); Alcohol Less than 10.0 mg/dL (Less than 10); Lipase 22 U/L (8-78); Salicylate Less than 8.0 mg/dL (15.0-30.0)
[2023-04-30 19:54] LABS: Bacteria/HPF None Seen HPF (None Seen); Bilirubin Negative (Negative); Blood, Urine Trace (Negative); CAUTI Indications for Culture Alt mental st,lethar; Clarity Clear (Clear); Glucose, Urine (Dipstick) Normal (Negative); Ketone, Urine 150 mg/dL (Negative); Leukocyte 500 Leu/uL (Negative); Nitrite Negative (Negative); Protein, Urine (Dipstick) 10 mg/dL (Neg-Trace); Squamous Epithelial 0-3 HPF (0-3); Urobilinogen Normal mg/dL (Less than 2)
[2023-04-30 19:55] LABS: Specific Gravity, Urine 1.057 (1.002-1.036)
[2023-04-30 19:56] LABS: Urine Culture Reflex No No
[2023-04-30 20:23] LABS: Free T4 (Free Thyroxine) 2.2 ng/dL (0.70-1.48); T4 16.84 ug/dL (4.87-11.72)
[2023-04-30] MEDS ORDERED: Vancomycin 1 GM/200 ML (FROZEN) BAG ONE (20:39)
[2023-04-30] MEDS ORDERED: Piperacillin/Tazobactam 4.5 GM VIAL ONE (20:39)
[2023-04-30] MEDS ORDERED: Propylthiouracil 50 MG TAB PO SCH (20:45)
[2023-04-30] MEDS ORDERED: Propranolol 60 MG TAB PO SCH (20:45)
[2023-04-30] MEDS ORDERED: Calcium Carbonate 500 MG ChewTAB PO PRN (21:51)
[2023-04-30] MEDS ORDERED: Ondansetron PF 4 MG/2 ML Vial IVP PRN (21:51)
[2023-04-30] MEDS ORDERED: Senokot S 8.6-50 MG TAB PO PRN (21:51)
[2023-04-30] MEDS ORDERED: Ondansetron ODT 4 MG TAB PO PRN (21:51)
[2023-04-30] MEDS ORDERED: Thiamine HCl 200 MG/2 ML VIAL SLOW IVP SCH (22:15)
[2023-04-30] MEDS ORDERED: Dextrose 5%-Lactated Ringers 1,000 ML IV SCH (22:15)
[2023-04-30 23:55] VITALS: BMI 24.2
[2023-05-01] MEDS ORDERED: Electrolyte Replacement Protocol 1 EACH FS SCH (00:30)
[2023-05-01] MEDS: Propylthiouracil 50 MG TAB PO SCH ×6 (01:28→21:09)
[2023-05-01] MEDS: Melatonin 3 MG TAB PO PRN ×2 (01:28→21:08)
[2023-05-01] MEDS: Propranolol 60 MG TAB PO SCH ×4 (01:28→17:59)
[2023-05-01 03:06] LABS: #Basophils 0.1 thou/uL (0.0-0.2); #Eosinphils 0.1 thou/uL (0.0-0.7); #Monocytes 1.7 thou/uL (0.11-0.59); #Neutrophils 9.1 thou/uL (1.40-6.50); %Basophils 0.6 % (0.0-1.0); %Eosinophils 0.5 % (0.0-10.0); %Lymphocytes 27.1 % (21.0-51.0); %Monocytes 11.2 % (0.0-10.0); %Neutrophils 60.2 % (42.0-75.0); Hemoglobin 10.5 g/dL (12.0-16.0); Mean Corpuscular HGB CONC 35.7 g/dL (32.0-36.0); Mean Corpuscular Hemoglobin 30.9 pg (27.0-31.0); Mean Corpuscular Volume 86.5 fl (78.0-98.0); Mean Platelet Volume 10.6 fL (7.4-10.4); Platelet Count 222 10x3/uL (130-400); RBC Distribution Width 12.8 % (11.5-14.5)
[2023-05-01 03:36] LABS: Phosphorus 2.9 mg/dL (2.3-4.7)
[2023-05-01 03:37] LABS: ALT (SGPT) 24 U/L (8-55); AST (SGOT) 36 U/L (5-34); Alkaline Phosphatase 99 U/L (40-110); Anion Gap 13 mmol/L (10-20); BUN (Urea Nitrogen) 21 mg/dL (9.8-20.1); Bilirubin, Total 0.6 mg/dL (0.2-1.2); Calc. Creatinine Clearance 81 mL/min (70-130); Calcium 9.3 mg/dL (7.8-10.44); Carbon Dioxide 17 mmol/L (22-29); Chloride 108 mmol/L (98-107); Estimated GFR 90; Globulin 2.5 g/dL (2.4-3.5); Glucose 111 mg/dL (70-105); Magnesium 1.8 mg/dL (1.6-2.6); Potassium 3.6 mmol/L (3.5-5.1); Protein, Total 6.5 g/dL (6.0-8.3); Sodium 134 mmol/L (136-145)
[2023-05-01] MEDS ORDERED: Magnesium 2 GM/50 ML(in water) 2 GM in Premix Bag 1 BAG IVPB SCH (04:30)
[2023-05-01] MEDS ORDERED: Promethazine HCl 12.5 MG in Sodium Chloride 0.9% 50 ML IVPB PRN (05:34)
[2023-05-01] MEDS ORDERED: Dicyclomine 10 MG CAP PO PRN (07:42)
[2023-05-01] MEDS ORDERED: Famotidine 20 MG TAB PO SCH (09:00)
[2023-05-01] MEDS: Lorazepam 0.5 MG TAB PO PRN ×2 (09:33→21:09)
[2023-05-01] MEDS: Famotidine/PF 20 mg/2ml Vial SLOW IVP SCH ×2 (09:34→21:09)
[2023-05-01] MEDS ORDERED: NOREPINEPHRINE 8 MG/250 ML-D5W 250 ML ONE (19:21)
[2023-05-02] MEDS: Propranolol 60 MG TAB PO SCH ×4 (01:05→18:33)
[2023-05-02] MEDS: Propylthiouracil 50 MG TAB PO SCH ×6 (01:05→22:55)
[2023-05-02] MEDS: tiZANidine HCl 4 MG TAB PO SCH ×2 (04:09→21:07)
[2023-05-02] MEDS: Loperamide HCl 2 MG CAP PO PRN (04:09)
[2023-05-02 06:08] LABS: #Basophils 0.1 thou/uL (0.0-0.2); #Eosinphils 0.1 thou/uL (0.0-0.7); #Monocytes 0.9 thou/uL (0.11-0.59); #Neutrophils 4.5 thou/uL (1.40-6.50); %Basophils 0.8 % (0.0-1.0); %Eosinophils 0.6 % (0.0-10.0); %Lymphocytes 30.4 % (21.0-51.0); %Neutrophils 56.9 % (42.0-75.0); Hemoglobin 10.1 g/dL (12.0-16.0); Mean Corpuscular HGB CONC 35.6 g/dL (32.0-36.0); Mean Corpuscular Hemoglobin 30.8 pg (27.0-31.0); Mean Corpuscular Volume 86.6 fl (78.0-98.0); Mean Platelet Volume 10.7 fL (7.4-10.4); Platelet Count 183 10x3/uL (130-400); RBC Distribution Width 12.7 % (11.5-14.5); Red Blood Cell (RBC) Count 3.28 mill/uL (4.20-5.40); White Blood Cell (WBC) Count 7.9 10x3/uL (4.8-10.8)
[2023-05-02 06:30] LABS: Anion Gap 13 mmol/L (10-20); BUN (Urea Nitrogen) 17 mg/dL (9.8-20.1); Calc. Creatinine Clearance 94 mL/min (70-130); Calcium 9.3 mg/dL (7.8-10.44); Carbon Dioxide 19 mmol/L (22-29); Chloride 109 mmol/L (98-107); Estimated GFR 104; Glucose 104 mg/dL (70-105); Potassium 3.1 mmol/L (3.5-5.1); Sodium 138 mmol/L (136-145)
[2023-05-02] MEDS ORDERED: Potassium Chloride 20 MEQ TAB PO SCH (08:00)
[2023-05-02] MEDS: Famotidine/PF 20 mg/2ml Vial SLOW IVP SCH ×2 (08:46→21:07)
[2023-05-02] MEDS: Acetaminophen 325 MG TAB PO PRN (12:30)
[2023-05-02] MEDS: ALPRAZolam 1 MG TAB PO PRN (17:15)
[2023-05-02] MEDS: Mirtazapine 30 MG TAB PO SCH (21:07)
[2023-05-02] MEDS ORDERED: FLUoxetine HCl 20 MG CAP PO SCH (23:00)
[2023-05-03] MEDS: Propranolol 60 MG TAB PO SCH ×5 (00:07→23:21)
[2023-05-03] MEDS: Melatonin 3 MG TAB PO PRN ×2 (00:12→23:22)
[2023-05-03] MEDS: Acetaminophen 325 MG TAB PO PRN ×2 (00:12→23:22)
[2023-05-03] MEDS: Lorazepam 0.5 MG TAB PO PRN (00:12)
[2023-05-03] MEDS: Propylthiouracil 50 MG TAB PO SCH ×6 (02:28→22:27)
[2023-05-03] MEDS: ALPRAZolam 1 MG TAB PO PRN (02:28)
[2023-05-03] MEDS ORDERED: FLUoxetine HCl 20 MG CAP PO SCH (09:00)
[2023-05-03 10:13] LABS: #Basophils 0.1 thou/uL (0.0-0.2); #Eosinphils 0.1 thou/uL (0.0-0.7); #Monocytes 1.1 thou/uL (0.11-0.59); %Basophils 0.7 % (0.0-1.0); %Eosinophils 0.5 % (0.0-10.0); %Monocytes 10.5 % (0.0-10.0); %Neutrophils 67.1 % (42.0-75.0); Hemoglobin 10.8 g/dL (12.0-16.0); Mean Corpuscular HGB CONC 36.5 g/dL (32.0-36.0); Mean Corpuscular Hemoglobin 30.8 pg (27.0-31.0); Mean Corpuscular Volume 84.3 fl (78.0-98.0); Mean Platelet Volume 10.9 fL (7.4-10.4); Platelet Count 202 10x3/uL (130-400); RBC Distribution Width 12.4 % (11.5-14.5); Red Blood Cell (RBC) Count 3.51 mill/uL (4.20-5.40); White Blood Cell (WBC) Count 10.4 10x3/uL (4.8-10.8)
[2023-05-03] MEDS: Buprenorphine 8mg/Naloxone 2mg per 1 FILM SL SCH (10:32)
[2023-05-03] MEDS: tiZANidine HCl 4 MG TAB PO SCH ×2 (10:33→22:26)
[2023-05-03] MEDS: Famotidine/PF 20 mg/2ml Vial SLOW IVP SCH ×2 (10:37→22:27)
[2023-05-03 10:59] LABS: ALT (SGPT) 19 U/L (8-55); AST (SGOT) 15 U/L (5-34); Albumin 3.9 g/dL (3.5-5.0); Alkaline Phosphatase 98 U/L (40-110); Anion Gap 12 mmol/L (10-20); BUN (Urea Nitrogen) 18 mg/dL (9.8-20.1); Bilirubin, Total 0.3 mg/dL (0.2-1.2); Calc. Creatinine Clearance 87 mL/min (70-130); Calcium 9.4 mg/dL (7.8-10.44); Carbon Dioxide 20 mmol/L (22-29); Chloride 113 mmol/L (98-107); Estimated GFR 99; Globulin 2.5 g/dL (2.4-3.5); Glucose 126 mg/dL (70-105); Potassium 3.2 mmol/L (3.5-5.1); Protein, Total 6.4 g/dL (6.0-8.3); Sodium 142 mmol/L (136-145)
[2023-05-03] MEDS ORDERED: Potassium Bicarbonate/Cit Ac 20 MEQ TAB PO SCH (11:45)
[2023-05-03] MEDS: Mirtazapine 30 MG TAB PO SCH (22:26)
[2023-05-03] MEDS: FLUoxetine HCl 20 MG CAP PO SCH (22:26)
[2023-05-04] MEDS: Propylthiouracil 50 MG TAB PO SCH ×6 (02:01→21:34)
[2023-05-04] MEDS: ALPRAZolam 1 MG TAB PO PRN (02:31)
[2023-05-04] MEDS: Propranolol 60 MG TAB PO SCH ×3 (06:21→18:14)
[2023-05-04 06:38] LABS: #Basophils 0.1 thou/uL (0.0-0.2); #Eosinphils 0.1 thou/uL (0.0-0.7); #Monocytes 0.8 thou/uL (0.11-0.59); #Neutrophils 3.8 thou/uL (1.40-6.50); %Basophils 0.6 % (0.0-1.0); %Eosinophils 1.6 % (0.0-10.0); %Lymphocytes 41.8 % (21.0-51.0); %Monocytes 10.1 % (0.0-10.0); %Neutrophils 45.7 % (42.0-75.0); Mean Corpuscular HGB CONC 36.2 g/dL (32.0-36.0); Mean Corpuscular Hemoglobin 30.6 pg (27.0-31.0); Mean Corpuscular Volume 84.4 fl (78.0-98.0); Mean Platelet Volume 11.4 fL (7.4-10.4); Platelet Count 202 10x3/uL (130-400); RBC Distribution Width 12.4 % (11.5-14.5); White Blood Cell (WBC) Count 8.3 10x3/uL (4.8-10.8)
[2023-05-04 07:13] LABS: Anion Gap 13 mmol/L (10-20); BUN (Urea Nitrogen) 16 mg/dL (9.8-20.1); Calc. Creatinine Clearance 94 mL/min (70-130); Calcium 9.3 mg/dL (7.8-10.44); Carbon Dioxide 22 mmol/L (22-29); Chloride 110 mmol/L (98-107); Estimated GFR 104; Glucose 99 mg/dL (70-105); Potassium 3.3 mmol/L (3.5-5.1); Sodium 142 mmol/L (136-145)
[2023-05-04] MEDS ORDERED: Potassium Chloride 20 MEQ TAB PO SCH (08:00)
[2023-05-04] MEDS: Famotidine/PF 20 mg/2ml Vial SLOW IVP SCH (09:26)
[2023-05-04] MEDS: tiZANidine HCl 4 MG TAB PO SCH ×2 (09:26→21:34)
[2023-05-04] MEDS ORDERED: Promethazine 25 MG TAB PO PRN (11:19)
[2023-05-04] MEDS: Mirtazapine 30 MG TAB PO SCH (21:34)
[2023-05-04] MEDS: FLUoxetine HCl 20 MG CAP PO SCH (21:34)
[2023-05-04] MEDS: Loperamide HCl 2 MG CAP PO PRN (21:39)
[2023-05-04] MEDS: Acetaminophen 325 MG TAB PO PRN (21:40)
[2023-05-04] MEDS: Melatonin 3 MG TAB PO PRN (22:54)
[2023-05-04] MEDS: Lorazepam 0.5 MG TAB PO PRN (22:54)
[2023-05-05] MEDS: Propranolol 60 MG TAB PO SCH ×3 (00:57→11:56)
[2023-05-05] MEDS: Propylthiouracil 50 MG TAB PO SCH ×4 (00:57→13:25)
[2023-05-05 07:13] LABS: #Basophils 0.1 thou/uL (0.0-0.2); #Eosinphils 0.2 thou/uL (0.0-0.7); #Monocytes 0.8 thou/uL (0.11-0.59); #Neutrophils 3.7 thou/uL (1.40-6.50); %Eosinophils 2.4 % (0.0-10.0); %Monocytes 10.4 % (0.0-10.0); %Neutrophils 51.9 % (42.0-75.0); Hemoglobin 11.7 g/dL (12.0-16.0); Mean Corpuscular HGB CONC 35.1 g/dL (32.0-36.0); Mean Corpuscular Hemoglobin 30.2 pg (27.0-31.0); Mean Corpuscular Volume 85.8 fl (78.0-98.0); Mean Platelet Volume 11.2 fL (7.4-10.4); Platelet Count 215 10x3/uL (130-400); RBC Distribution Width 12.7 % (11.5-14.5); Red Blood Cell (RBC) Count 3.88 mill/uL (4.20-5.40); White Blood Cell (WBC) Count 7.2 10x3/uL (4.8-10.8)
[2023-05-05 07:41] LABS: Anion Gap 17 mmol/L (10-20); BUN (Urea Nitrogen) 14 mg/dL (9.8-20.1); Calc. Creatinine Clearance 84 mL/min (70-130); Carbon Dioxide 18 mmol/L (22-29); Chloride 111 mmol/L (98-107); Estimated GFR 95; Glucose 98 mg/dL (70-105); Potassium 3.9 mmol/L (3.5-5.1); Sodium 142 mmol/L (136-145)
[2023-05-05] MEDS: tiZANidine HCl 4 MG TAB PO SCH (09:47)
[2023-05-05] MEDS: Buprenorphine 8mg/Naloxone 2mg per 1 FILM SL SCH (09:47)
[2023-05-05 13:31] VITALS: BP 107/74; TEMP 98.2
== END 2023-05-05 13:50 | disposition home or self-care (01) | DRG 643 ==
LOC: ERS 17:52 → ERHOLD 21:13 → OBSVTOIN 21:51 → IMCU/EMU 23:29 → T4-A 05-02 19:15
PROVIDERS: ADMIT Student in an Organized Health Care Education/Training Program; ATTEND Internal Medicine
DX: E05.21 Thyrotoxicosis with toxic multinodular goiter with thyrotoxic crisis or storm (principal); G93.41 Metabolic encephalopathy; E87.20 Acidosis, unspecified; E87.1 Hypo-osmolality and hyponatremia; G89.29 Other chronic pain; I10 Essential (primary) hypertension; F41.9 Anxiety disorder, unspecified; E87.6 Hypokalemia; F32.9 Major depressive disorder, single episode, unspecified; R19.7 Diarrhea, unspecified; M54.9 Dorsalgia, unspecified; D64.9 Anemia, unspecified; D72.829 Elevated white blood cell count, unspecified; F17.210 Nicotine dependence, cigarettes, uncomplicated; Z90.49 Acquired absence of other specified parts of digestive tract; Z90.710 Acquired absence of both cervix and uterus; Z79.899 Other long term (current) drug therapy
CPT/HCPCS: 36415; 36416; 70450; 71045; 74177; 76536; 80048; 80053; 80306; 80307; 81001; 82010; 83605; 83690; 83735; 83880; 84100; 84436; 84439; 84443; 84480; 84481; 84484; 85025; 87040; 87086; 87324; 87449; 93005; 96361; 96365; 96375; J2405; J2543; J2550; J3370-JW; J3411; J3475; Q9967; S0028

== ENCOUNTER 2023-05-06 11:57 | Inpatient (IN) | payer MEDICARE ==
[2023-05-06 13:47] LABS: #Basophils 0.1 thou/uL (0.0-0.2); #Eosinphils 0.1 thou/uL (0.0-0.7); #Monocytes 0.9 thou/uL (0.11-0.59); #Neutrophils 5.5 thou/uL (1.40-6.50); %Basophils 0.7 % (0.0-1.0); %Eosinophils 0.7 % (0.0-10.0); %Lymphocytes 27.6 % (21.0-51.0); %Monocytes 9.8 % (0.0-10.0); Hematocrit 32.2 % (36.0-47.0); Hemoglobin 11.6 g/dL (12.0-16.0); Mean Corpuscular Hemoglobin 30.9 pg (27.0-31.0); Mean Corpuscular Volume 85.9 fl (78.0-98.0); Mean Platelet Volume 12.1 fL (7.4-10.4); Platelet Count 255 10x3/uL (130-400); RBC Distribution Width 12.8 % (11.5-14.5); Red Blood Cell (RBC) Count 3.75 mill/uL (4.20-5.40); White Blood Cell (WBC) Count 9.1 10x3/uL (4.8-10.8)
[2023-05-06 13:59] LABS: INR-International Normal Ratio 1.1; Prothrombin Time 15.1 sec (12.0-14.7)
[2023-05-06 14:00] LABS: PTT 24.5 sec (22.9-36.1)
[2023-05-06 14:01] LABS: ALT (SGPT) 12 U/L (8-55); AST (SGOT) 13 U/L (5-34); Albumin 4.1 g/dL (3.5-5.0); Alkaline Phosphatase 117 U/L (40-110); Anion Gap 19 mmol/L (10-20); BUN (Urea Nitrogen) 19 mg/dL (9.8-20.1); Bilirubin, Total 0.5 mg/dL (0.2-1.2); Calc. Creatinine Clearance 0 mL/min (70-130); Calcium 9.2 mg/dL (7.8-10.44); Carbon Dioxide 15 mmol/L (22-29); Chloride 110 mmol/L (98-107); Estimated GFR 103; Globulin 2.6 g/dL (2.4-3.5); Glucose 96 mg/dL (70-105); Potassium 3.6 mmol/L (3.5-5.1); Protein, Total 6.7 g/dL (6.0-8.3); Sodium 140 mmol/L (136-145)
[2023-05-06] MEDS ORDERED: Propylthiouracil 50 MG TAB PO SCH (15:45)
[2023-05-06] MEDS ORDERED: Buprenorphine 8mg/Naloxone 2mg per 1 FILM SL SCH (18:00)
[2023-05-06] MEDS ORDERED: Acetaminophen 325 MG TAB PO PRN (18:06)
[2023-05-06] MEDS ORDERED: Ondansetron PF 4 MG/2 ML Vial IVP PRN (18:06)
[2023-05-06 18:13] VITALS: BMI 22.8
[2023-05-06] MEDS ORDERED: Sodium Chloride 0.9% 1,000 ML IV SCH (18:15)
[2023-05-06] MEDS ORDERED: Potassium Chloride 20 MEQ TAB PO SCH (18:30)
[2023-05-06 19:31] LABS: Free T4 (Free Thyroxine) 2.61 ng/dL (0.70-1.48); Thyroid Stimulating Hormone Less than 0.0025 uIU/mL (0.35-4.94)
[2023-05-06] MEDS: methylPREDNISolone Sod Succ/PF 125 MG/2 ML VIAL IVP SCH (20:02)
[2023-05-06] MEDS: Buprenorphine 8mg/Naloxone 2mg per 1 FILM SL SCH (20:02)
[2023-05-06] MEDS: Heparin 5,000 UNITS/ML VIAL SC SCH (20:02)
[2023-05-06] MEDS: Propranolol 40 MG TAB PO SCH (20:03)
[2023-05-06] MEDS: Mirtazapine 30 MG TAB PO SCH (20:03)
[2023-05-06] MEDS: HYDROcodone/Acetaminophen 5/325 mg Tablet PO PRN (20:03)
[2023-05-06] MEDS: ALPRAZolam 1 MG TAB PO PRN (20:03)
[2023-05-06] MEDS: Propylthiouracil 50 MG TAB PO SCH (20:04)
[2023-05-06] MEDS ORDERED: Propranolol 40 MG TAB PO SCH ×2 (21:00)
[2023-05-07] MEDS: ALPRAZolam 1 MG TAB PO PRN ×2 (02:44→22:29)
[2023-05-07 06:14] LABS: #Monocytes 0.1 thou/uL (0.11-0.59); #Neutrophils 3.2 thou/uL (1.40-6.50); %Basophils 0.2 % (0.0-1.0); %Lymphocytes 22.9 % (21.0-51.0); %Monocytes 2.8 % (0.0-10.0); %Neutrophils 73.6 % (42.0-75.0); Hematocrit 32.3 % (36.0-47.0); Hemoglobin 11.6 g/dL (12.0-16.0); Mean Corpuscular HGB CONC 35.9 g/dL (32.0-36.0); Mean Corpuscular Hemoglobin 30.9 pg (27.0-31.0); Mean Corpuscular Volume 86.1 fl (78.0-98.0); Mean Platelet Volume 11.1 fL (7.4-10.4); Platelet Count 216 10x3/uL (130-400); Red Blood Cell (RBC) Count 3.75 mill/uL (4.20-5.40); White Blood Cell (WBC) Count 4.3 10x3/uL (4.8-10.8)
[2023-05-07 06:42] LABS: ALT (SGPT) 10 U/L (8-55); AST (SGOT) 11 U/L (5-34); Albumin 4.1 g/dL (3.5-5.0); Alkaline Phosphatase 125 U/L (40-110); Anion Gap 11 mmol/L (10-20); BUN (Urea Nitrogen) 15 mg/dL (9.8-20.1); Bilirubin, Total 0.3 mg/dL (0.2-1.2); Calc. Creatinine Clearance 80 mL/min (70-130); Calcium 9.9 mg/dL (7.8-10.44); Carbon Dioxide 20 mmol/L (22-29); Chloride 112 mmol/L (98-107); Estimated GFR 96; Globulin 2.8 g/dL (2.4-3.5); Glucose 215 mg/dL (70-105); Potassium 4.2 mmol/L (3.5-5.1); Protein, Total 6.9 g/dL (6.0-8.3); Sodium 139 mmol/L (136-145)
[2023-05-07 06:54] LABS: Thyroid Stimulating Hormone Less than 0.0025 uIU/mL (0.35-4.94)
[2023-05-07] MEDS: Propylthiouracil 50 MG TAB PO SCH ×3 (09:31→20:07)
[2023-05-07] MEDS: FLUoxetine HCl 20 MG CAP PO SCH (09:31)
[2023-05-07] MEDS: Heparin 5,000 UNITS/ML VIAL SC SCH ×3 (09:31→20:06)
[2023-05-07] MEDS: Propranolol 40 MG TAB PO SCH ×2 (09:31→20:09)
[2023-05-07] MEDS: methylPREDNISolone Sod Succ/PF 125 MG/2 ML VIAL IVP SCH ×2 (09:31→20:06)
[2023-05-07] MEDS ORDERED: Amlodipine 5 MG TAB PO SCH (12:15)
[2023-05-07] MEDS: Mirtazapine 30 MG TAB PO SCH (20:06)
[2023-05-07] MEDS: HYDROcodone/Acetaminophen 5/325 mg Tablet PO PRN (22:28)
[2023-05-08] MEDS: Heparin 5,000 UNITS/ML VIAL SC SCH ×3 (09:53→21:15)
[2023-05-08] MEDS: FLUoxetine HCl 20 MG CAP PO SCH (09:53)
[2023-05-08] MEDS: methylPREDNISolone Sod Succ/PF 125 MG/2 ML VIAL IVP SCH (09:54)
[2023-05-08] MEDS: Propylthiouracil 50 MG TAB PO SCH ×3 (09:54→21:16)
[2023-05-08] MEDS: Propranolol 40 MG TAB PO SCH ×2 (10:14→21:15)
[2023-05-08] MEDS: HYDROcodone/Acetaminophen 5/325 mg Tablet PO PRN ×2 (13:47→21:38)
[2023-05-08 19:30] LABS: Acetaminophen Less than 10 mcg/mL (10.0-30.0); Alcohol Less than 10.0 mg/dL (Less than 10); Salicylate Less than 8.0 mg/dL (15.0-30.0)
[2023-05-08] MEDS: Mirtazapine 30 MG TAB PO SCH (21:15)
[2023-05-08] MEDS: Buprenorphine 8mg/Naloxone 2mg per 1 FILM SL SCH (21:29)
[2023-05-08 22:25] LABS: Bilirubin Negative (Negative); Blood, Urine 3+ (Negative); Clarity Clear (Clear); Glucose, Urine (Dipstick) Normal (Negative); Ketone, Urine Trace mg/dL (Negative); Leukocyte 250 Leu/uL (Negative); Mucous/LPF 1+ LPF (<2+); Nitrite Negative (Negative); Protein, Urine (Dipstick) 20 mg/dL (Neg-Trace); RBC/HPF Greater than 50 HPF (0-3); Renal Epithelial 0-3 HPF (None Seen); Specific Gravity, Urine 1.027 (1.002-1.036); Squamous Epithelial 0-3 HPF (0-3); Urobilinogen Normal mg/dL (Less than 2)
[2023-05-08 22:31] LABS: Amphetamine Not Detected (NotDetected); Barbiturates Screen Not Detected (NotDetected); Benzodiazepine Screen Detected (NotDetected); Cocaine Metabolite Screen Not Detected (NotDetected); Methadone Not Detected (NotDetected); Methamphetamine Not Detected (NotDetected); Opiate Screen Detected (NotDetected); Oxycodone Screen Not Detected (NotDetected); Phencyclidine (PCP) Not Detected (NotDetected); THC/Cannabinoid Screen Detected (NotDetected); Tricyclic Screen Not Detected (NotDetected)
[2023-05-08 22:35] LABS: Bacteria/HPF 1+ HPF (None Seen)
[2023-05-08] MEDS: ALPRAZolam 1 MG TAB PO PRN (23:04)
[2023-05-09] MEDS: Propranolol 40 MG TAB PO SCH (09:49)
[2023-05-09] MEDS: FLUoxetine HCl 20 MG CAP PO SCH (09:49)
[2023-05-09] MEDS: Heparin 5,000 UNITS/ML VIAL SC SCH ×2 (09:50→15:44)
[2023-05-09] MEDS: Propylthiouracil 50 MG TAB PO SCH ×2 (09:50→15:45)
[2023-05-09] MEDS ORDERED: cefTRIAXone\\ROCEPHIN 1 GM in Sodium Chloride 0.9% 100 ML IVPB SCH (11:00)
[2023-05-09] MEDS: HYDROcodone/Acetaminophen 5/325 mg Tablet PO PRN (15:45)
[2023-05-09 16:27] VITALS: BP 167/91; TEMP 98.7
== END 2023-05-09 19:22 | DRG 644 ==
LOC: ERS 11:57 → 2SW 18:05 → OBSVTOIN 05-09 08:55
PROVIDERS: ADMIT Internal Medicine; ATTEND Internal Medicine
DX: E05.11 Thyrotoxicosis with toxic single thyroid nodule with thyrotoxic crisis or storm (principal); N39.0 Urinary tract infection, site not specified; R45.851 Suicidal ideations; R44.0 Auditory hallucinations; D72.819 Decreased white blood cell count, unspecified; G89.29 Other chronic pain; I10 Essential (primary) hypertension; F19.10 Other psychoactive substance abuse, uncomplicated; F32.A Depression, unspecified; E87.6 Hypokalemia; R91.1 Solitary pulmonary nodule; N20.0 Calculus of kidney; R45.850 Homicidal ideations; Z90.710 Acquired absence of both cervix and uterus; Z91.148 Patient's other noncompliance with medication regimen for other reason; Z79.899 Other long term (current) drug therapy; Z90.6 Acquired absence of other parts of urinary tract
CPT/HCPCS: 36415; 71045; 71275; 72146; 80053; 80306; 80307; 81001; 83880; 84439; 84443; 84445; 84481; 84484; 85025; 85610; 85730; 86376; 86800; 87086; 93005; 96372; 96375; 96376; G0378; J0571; J0696; J1644; J1800; J2930; J3490; J7050; Q9967

== ENCOUNTER 2023-06-14 08:01 | Emergency (ER) | payer MEDICARE ==
[2023-06-14] MEDS ORDERED: Dicyclomine 20 MG TAB ONE (08:34)
[2023-06-14 08:44] LABS: #Basophils 0.1 thou/uL (0.0-0.2); #Monocytes 0.7 thou/uL (0.11-0.59); #Neutrophils 6.7 thou/uL (1.40-6.50); %Basophils 0.7 % (0.0-1.0); %Eosinophils 0.3 % (0.0-10.0); %Lymphocytes 23.1 % (21.0-51.0); %Neutrophils 68.1 % (42.0-75.0); Hematocrit 36.8 % (36.0-47.0); Hemoglobin 12.7 g/dL (12.0-16.0); Mean Corpuscular HGB CONC 34.5 g/dL (32.0-36.0); Mean Corpuscular Hemoglobin 31.1 pg (27.0-31.0); Mean Platelet Volume 9.8 fL (7.4-10.4); Platelet Count 255 10x3/uL (130-400); RBC Distribution Width 13.8 % (11.5-14.5); Red Blood Cell (RBC) Count 4.09 mill/uL (4.20-5.40); White Blood Cell (WBC) Count 9.8 10x3/uL (4.8-10.8)
[2023-06-14 08:59] LABS: Bilirubin Negative (Negative); Blood, Urine 3+ (Negative); CAUTI Indications for Culture Dysuria,urgency,freq; Clarity Clear (Clear); Glucose, Urine (Dipstick) Normal (Negative); Ketone, Urine Negative (Negative); Leukocyte Negative Leu/uL (Negative); Nitrite Negative (Negative); Protein, Urine (Dipstick) Negative (Neg-Trace); RBC/HPF Greater than 50 HPF (0-3); Squamous Epithelial 0-3 HPF (0-3); Urobilinogen Normal mg/dL (Less than 2); WBC/HPF 21-50 HPF (0-3)
[2023-06-14 09:01] LABS: Bacteria/HPF None Seen HPF (None Seen)
[2023-06-14 09:02] LABS: Urine Culture Reflex Yes Yes
[2023-06-14 09:06] LABS: ALT (SGPT) 14 U/L (8-55); AST (SGOT) 15 U/L (5-34); Albumin 4.2 g/dL (3.5-5.0); Alkaline Phosphatase 165 U/L (40-110); Anion Gap 14 mmol/L (10-20); BUN (Urea Nitrogen) 11 mg/dL (9.8-20.1); Bilirubin, Total 0.2 mg/dL (0.2-1.2); Calc. Creatinine Clearance 0 mL/min (70-130); Calcium 9.6 mg/dL (7.8-10.44); Carbon Dioxide 23 mmol/L (22-29); Chloride 108 mmol/L (98-107); Estimated GFR 103; Globulin 2.9 g/dL (2.4-3.5); Glucose 117 mg/dL (70-105); Lipase 18 U/L (8-78); Potassium 4.2 mmol/L (3.5-5.1); Protein, Total 7.1 g/dL (6.0-8.3); Sodium 141 mmol/L (136-145)
[2023-06-14 10:42] LABS: T4 5.37 ug/dL (4.87-11.72); Thyroid Stimulating Hormone 0.0069 uIU/mL (0.35-4.94)
== END 2023-06-14 11:12 | disposition home or self-care (01) ==
LOC: ERS 08:01
DX: K59.00 Constipation, unspecified (principal); Z87.891 Personal history of nicotine dependence
CPT/HCPCS: 74018; 80053; 81001; 83690; 84436; 84443; 85025; 87086; 99284

== ENCOUNTER 2023-06-20 23:27 | Emergency (ER) | payer MEDICARE ==
[2023-06-21 00:15] LABS: #Basophils 0.1 thou/uL (0.0-0.2); #Monocytes 0.8 thou/uL (0.11-0.59); #Neutrophils 14.6 thou/uL (1.40-6.50); %Basophils 0.6 % (0.0-1.0); %Lymphocytes 11.8 % (21.0-51.0); %Monocytes 4.7 % (0.0-10.0); %Neutrophils 82.3 % (42.0-75.0); Hematocrit 40.7 % (36.0-47.0); Hemoglobin 14.3 g/dL (12.0-16.0); Mean Corpuscular HGB CONC 35.1 g/dL (32.0-36.0); Mean Corpuscular Hemoglobin 31.1 pg (27.0-31.0); Mean Corpuscular Volume 88.5 fl (78.0-98.0); Mean Platelet Volume 9.8 fL (7.4-10.4); Platelet Count 334 10x3/uL (130-400); RBC Distribution Width 13.9 % (11.5-14.5); White Blood Cell (WBC) Count 17.7 10x3/uL (4.8-10.8)
[2023-06-21 00:32] LABS: Clarity Cloudy (Clear)
[2023-06-21 00:33] LABS: Specific Gravity, Urine 1.029 (1.002-1.036)
[2023-06-21 00:35] LABS: Bacteria/HPF 3+ HPF (None Seen); CAUTI Indications for Culture Acute Hematuria; Calcium Oxalate Crystals 1+ HPF (None Seen); Other Microscopic Description Less than 2 mL rec'd; WBC/HPF 0-3 HPF (0-3)
[2023-06-21 00:35] LABS: ALT (SGPT) 12 U/L (8-55); AST (SGOT) 10 U/L (5-34); Alkaline Phosphatase 155 U/L (40-110); Anion Gap 16 mmol/L (10-20); BUN (Urea Nitrogen) 15 mg/dL (9.8-20.1); Bilirubin, Total 0.5 mg/dL (0.2-1.2); Calc. Creatinine Clearance 0 mL/min (70-130); Calcium 10.3 mg/dL (7.8-10.44); Carbon Dioxide 21 mmol/L (22-29); Chloride 106 mmol/L (98-107); Estimated GFR 76; Globulin 3.1 g/dL (2.4-3.5); Glucose 108 mg/dL (70-105); Lipase 7 U/L (8-78); Potassium 3.3 mmol/L (3.5-5.1); Protein, Total 8.1 g/dL (6.0-8.3); Sodium 140 mmol/L (136-145)
[2023-06-21 00:36] LABS: Urine Culture Reflex No No
[2023-06-21] MEDS ORDERED: Iopamidol-370 76% 500 ML MDV (1 ML CHARGE) ONE (10:21)
== END 2023-06-21 03:17 | disposition home or self-care (01) ==
LOC: ERS 23:27
DX: N20.1 Calculus of ureter (principal)
CPT/HCPCS: 74177; 80053; 81001; 83605; 83690; 85025; 87040; 87086; 93005; Q9967

== ENCOUNTER 2023-07-21 13:56 | Inpatient (IN) | payer MEDICARE ==
[2023-07-21 14:56] LABS: #Basophils 0.1 thou/uL (0.0-0.2); #Eosinphils 0.1 thou/uL (0.0-0.7); #Monocytes 0.5 thou/uL (0.11-0.59); #Neutrophils 5.7 thou/uL (1.40-6.50); %Basophils 0.6 % (0.0-1.0); %Eosinophils 0.8 % (0.0-10.0); %Lymphocytes 25.2 % (21.0-51.0); %Monocytes 5.8 % (0.0-10.0); %Neutrophils 67.4 % (42.0-75.0); Hematocrit 37.1 % (36.0-47.0); Hemoglobin 12.9 g/dL (12.0-16.0); Mean Corpuscular HGB CONC 34.8 g/dL (32.0-36.0); Mean Corpuscular Hemoglobin 31.4 pg (27.0-31.0); Mean Corpuscular Volume 90.3 fl (78.0-98.0); Mean Platelet Volume 10.1 fL (7.4-10.4); Platelet Count 229 10x3/uL (130-400); RBC Distribution Width 13.2 % (11.5-14.5); Red Blood Cell (RBC) Count 4.11 mill/uL (4.20-5.40); White Blood Cell (WBC) Count 8.5 10x3/uL (4.8-10.8)
[2023-07-21 15:22] LABS: ALT (SGPT) 10 U/L (8-55); AST (SGOT) 10 U/L (5-34); Albumin 4.6 g/dL (3.5-5.0); Alkaline Phosphatase 140 U/L (40-110); Anion Gap 14 mmol/L (10-20); BUN (Urea Nitrogen) 14 mg/dL (9.8-20.1); Bilirubin, Total 0.4 mg/dL (0.2-1.2); Calc. Creatinine Clearance 0 mL/min (70-130); Calcium 9.6 mg/dL (7.8-10.44); Carbon Dioxide 23 mmol/L (22-29); Chloride 110 mmol/L (98-107); Estimated GFR 92; Globulin 2.2 g/dL (2.4-3.5); Glucose 90 mg/dL (70-105); Potassium 3.5 mmol/L (3.5-5.1); Protein, Total 6.8 g/dL (6.0-8.3); Sodium 143 mmol/L (136-145)
[2023-07-21 15:23] LABS: Acetaminophen Less than 10 mcg/mL (10.0-30.0); Alcohol Less than 10.0 mg/dL (Less than 10); Salicylate Less than 8.0 mg/dL (15.0-30.0)
[2023-07-21 16:15] LABS: Bilirubin Negative (Negative); Blood, Urine Negative (Negative); CAUTI Indications for Culture Pelvic or flank pain; Clarity Clear (Clear); Glucose, Urine (Dipstick) Normal (Negative); Ketone, Urine Negative (Negative); Leukocyte 500 Leu/uL (Negative); Nitrite Negative (Negative); Protein, Urine (Dipstick) Negative (Neg-Trace); RBC/HPF 0-3 HPF (0-3); Specific Gravity, Urine 1.014 (1.002-1.036); Squamous Epithelial 0-3 HPF (0-3); Urobilinogen Normal mg/dL (Less than 2); pH, Urine 5.5 (5.0-9.0)
[2023-07-21 16:18] LABS: Bacteria/HPF 1+ HPF (None Seen)
[2023-07-21 16:19] LABS: Urine Culture Reflex Yes Yes
[2023-07-21 16:27] LABS: Amphetamine Not Detected (NotDetected); Barbiturates Screen Not Detected (NotDetected); Benzodiazepine Screen Detected (NotDetected); Cocaine Metabolite Screen Not Detected (NotDetected); Methadone Not Detected (NotDetected); Methamphetamine Not Detected (NotDetected); Opiate Screen Not Detected (NotDetected); Oxycodone Screen Not Detected (NotDetected); Phencyclidine (PCP) Not Detected (NotDetected); THC/Cannabinoid Screen Detected (NotDetected); Tricyclic Screen Not Detected (NotDetected)
[2023-07-21] MEDS ORDERED: cefTRIAXone (ROCEPHIN) 1 GM VIAL ONE (17:26)
[2023-07-21] MEDS ORDERED: Ondansetron ODT 4 MG TAB PO PRN (18:10)
[2023-07-21] MEDS ORDERED: Acetaminophen 325 MG TAB PO PRN (18:10)
[2023-07-21] MEDS ORDERED: cefTRIAXone Sodium 1 MG in Syringe 0 ML IVPB SCH (18:30)
[2023-07-21] MEDS ORDERED: hydrALAZINE 20 MG/ML VIAL SLOW IVP PRN (18:36)
[2023-07-21] MEDS ORDERED: Lorazepam 0.5 MG TAB PO PRN (18:43)
[2023-07-21 23:09] VITALS: BMI 23.0
[2023-07-21] MEDS: Lactated Ringer's 1,000 ML IV SCH (23:19)
[2023-07-21] MEDS: Mirtazapine 30 MG TAB PO SCH (23:19)
[2023-07-21] MEDS: HYDROcodone/Acetaminophen 5/325 mg Tablet PO PRN (23:20)
[2023-07-21] MEDS: Famotidine 20 MG TAB PO SCH (23:20)
[2023-07-21] MEDS: Methocarbamol 500 MG TAB PO SCH (23:21)
[2023-07-21] MEDS: Propranolol 40 MG TAB PO SCH (23:29)
[2023-07-21] MEDS: Propylthiouracil 50 MG TAB PO SCH (23:30)
[2023-07-22 04:33] LABS: #Basophils 0.1 thou/uL (0.0-0.2); #Eosinphils 0.1 thou/uL (0.0-0.7); #Monocytes 0.5 thou/uL (0.11-0.59); #Neutrophils 2.7 thou/uL (1.40-6.50); %Basophils 0.9 % (0.0-1.0); %Eosinophils 1.9 % (0.0-10.0); %Lymphocytes 50.3 % (21.0-51.0); %Monocytes 6.7 % (0.0-10.0); %Neutrophils 40.1 % (42.0-75.0); Hematocrit 34.4 % (36.0-47.0); Mean Corpuscular HGB CONC 34.9 g/dL (32.0-36.0); Mean Corpuscular Volume 91.7 fl (78.0-98.0); Mean Platelet Volume 10.3 fL (7.4-10.4); Platelet Count 199 10x3/uL (130-400); RBC Distribution Width 13.3 % (11.5-14.5); Red Blood Cell (RBC) Count 3.75 mill/uL (4.20-5.40); White Blood Cell (WBC) Count 6.8 10x3/uL (4.8-10.8)
[2023-07-22 05:00] LABS: Anion Gap 11 mmol/L (10-20); BUN (Urea Nitrogen) 19 mg/dL (9.8-20.1); Calc. Creatinine Clearance 79 mL/min (70-130); Carbon Dioxide 23 mmol/L (22-29); Chloride 110 mmol/L (98-107); Estimated GFR 94; Glucose 127 mg/dL (70-105); Potassium 3.2 mmol/L (3.5-5.1); Sodium 141 mmol/L (136-145)
[2023-07-22] MEDS ORDERED: Potassium Chloride 20 MEQ TAB PO SCH (08:30)
[2023-07-22] MEDS: HYDROcodone/Acetaminophen 5/325 mg Tablet PO PRN ×3 (09:27→20:31)
[2023-07-22] MEDS: Lactated Ringer's 1,000 ML IV SCH ×2 (09:27→20:35)
[2023-07-22] MEDS: FLUoxetine HCl 20 MG CAP PO SCH (09:28)
[2023-07-22] MEDS: Famotidine 20 MG TAB PO SCH ×2 (09:28→20:31)
[2023-07-22] MEDS: Propylthiouracil 50 MG TAB PO SCH ×3 (09:29→20:32)
[2023-07-22] MEDS: Propranolol 40 MG TAB PO SCH ×2 (09:29→20:32)
[2023-07-22] MEDS: Methocarbamol 500 MG TAB PO SCH ×4 (09:29→20:31)
[2023-07-22] MEDS ORDERED: Fioricet 325/50/40 mg Tablet PO PRN (12:42)
[2023-07-22 13:54] LABS: Thyroglobulin Antibody Less than 12.0 IU/mL (<40 Normal)
[2023-07-22] MEDS: cefTRIAXone\\ROCEPHIN 1 GM in Sodium Chloride 0.9% 100 ML IVPB SCH (17:30)
[2023-07-22] MEDS: Mirtazapine 30 MG TAB PO SCH (20:31)
[2023-07-23 04:21] LABS: #Eosinphils 0.1 thou/uL (0.0-0.7); #Monocytes 0.4 thou/uL (0.11-0.59); #Neutrophils 2.5 thou/uL (1.40-6.50); %Basophils 0.6 % (0.0-1.0); %Eosinophils 2.2 % (0.0-10.0); %Lymphocytes 38.6 % (21.0-51.0); %Neutrophils 50.4 % (42.0-75.0); Hematocrit 32.4 % (36.0-47.0); Hemoglobin 11.1 g/dL (12.0-16.0); Mean Corpuscular HGB CONC 34.3 g/dL (32.0-36.0); Mean Corpuscular Hemoglobin 31.9 pg (27.0-31.0); Mean Corpuscular Volume 93.1 fl (78.0-98.0); Mean Platelet Volume 10.2 fL (7.4-10.4); Platelet Count 171 10x3/uL (130-400); RBC Distribution Width 13.2 % (11.5-14.5); Red Blood Cell (RBC) Count 3.48 mill/uL (4.20-5.40)
[2023-07-23 04:55] LABS: Anion Gap 11 mmol/L (10-20); BUN (Urea Nitrogen) 15 mg/dL (9.8-20.1); Calc. Creatinine Clearance 70 mL/min (70-130); Calcium 8.7 mg/dL (7.8-10.44); Carbon Dioxide 23 mmol/L (22-29); Chloride 112 mmol/L (98-107); Estimated GFR 82; Glucose 105 mg/dL (70-105); Potassium 3.8 mmol/L (3.5-5.1); Sodium 142 mmol/L (136-145)
[2023-07-23] MEDS: HYDROcodone/Acetaminophen 5/325 mg Tablet PO PRN ×3 (07:49→20:06)
[2023-07-23] MEDS: Propranolol 40 MG TAB PO SCH ×2 (07:49→20:06)
[2023-07-23] MEDS: Methocarbamol 500 MG TAB PO SCH ×4 (07:50→20:07)
[2023-07-23] MEDS: FLUoxetine HCl 20 MG CAP PO SCH (07:50)
[2023-07-23] MEDS: Propylthiouracil 50 MG TAB PO SCH ×3 (07:51→20:06)
[2023-07-23] MEDS: Famotidine 20 MG TAB PO SCH ×2 (07:51→20:06)
[2023-07-23] MEDS: Lactated Ringer's 1,000 ML IV SCH (11:15)
[2023-07-23] MEDS: cefTRIAXone\\ROCEPHIN 1 GM in Sodium Chloride 0.9% 100 ML IVPB SCH (17:23)
[2023-07-23] MEDS: Mirtazapine 30 MG TAB PO SCH (20:06)
[2023-07-24] MEDS: Lactated Ringer's 1,000 ML IV SCH (00:17)
[2023-07-24] MEDS: HYDROcodone/Acetaminophen 5/325 mg Tablet PO PRN ×3 (00:21→17:20)
[2023-07-24] MEDS: Propylthiouracil 50 MG TAB PO SCH ×3 (08:00→20:32)
[2023-07-24] MEDS: Methocarbamol 500 MG TAB PO SCH ×4 (08:00→20:32)
[2023-07-24] MEDS: FLUoxetine HCl 20 MG CAP PO SCH (08:00)
[2023-07-24] MEDS: Propranolol 40 MG TAB PO SCH ×2 (08:00→20:32)
[2023-07-24] MEDS: Famotidine 20 MG TAB PO SCH ×2 (08:00→20:32)
[2023-07-24] MEDS: cefTRIAXone\\ROCEPHIN 1 GM in Sodium Chloride 0.9% 100 ML IVPB SCH (17:20)
[2023-07-24] MEDS: Mirtazapine 30 MG TAB PO SCH (20:31)
[2023-07-25] MEDS: HYDROcodone/Acetaminophen 5/325 mg Tablet PO PRN ×3 (05:29→18:26)
[2023-07-25] MEDS: Methocarbamol 500 MG TAB PO SCH ×4 (09:50→21:28)
[2023-07-25] MEDS: Propranolol 40 MG TAB PO SCH ×2 (09:50→21:46)
[2023-07-25] MEDS: Propylthiouracil 50 MG TAB PO SCH ×3 (09:50→21:28)
[2023-07-25] MEDS: FLUoxetine HCl 20 MG CAP PO SCH (09:50)
[2023-07-25] MEDS: Famotidine 20 MG TAB PO SCH ×2 (09:50→21:27)
[2023-07-25] MEDS: Nicotine 14 MG PATCH TD SCH (18:25)
[2023-07-25] MEDS: Mirtazapine 30 MG TAB PO SCH (21:27)
[2023-07-25] MEDS: Nitrofurantoin Monohyd/M-Cryst 100 MG CAP PO SCH (21:28)
[2023-07-26] MEDS: FLUoxetine HCl 20 MG CAP PO SCH (09:51)
[2023-07-26] MEDS: Methocarbamol 500 MG TAB PO SCH ×4 (09:52→21:25)
[2023-07-26] MEDS: Famotidine 20 MG TAB PO SCH ×2 (09:52→21:25)
[2023-07-26] MEDS: Propylthiouracil 50 MG TAB PO SCH ×3 (09:52→21:35)
[2023-07-26] MEDS: Nitrofurantoin Monohyd/M-Cryst 100 MG CAP PO SCH ×2 (09:52→21:26)
[2023-07-26] MEDS: HYDROcodone/Acetaminophen 5/325 mg Tablet PO PRN ×4 (09:52→21:26)
[2023-07-26] MEDS: Propranolol 40 MG TAB PO SCH ×2 (09:53→22:28)
[2023-07-26] MEDS: Nicotine 14 MG PATCH TD SCH (14:52)
[2023-07-26] MEDS: Mirtazapine 30 MG TAB PO SCH (21:25)
[2023-07-27] MEDS: HYDROcodone/Acetaminophen 5/325 mg Tablet PO PRN ×3 (00:49→08:15)
[2023-07-27 07:45] VITALS: BP 98/57; TEMP 98.6
[2023-07-27] MEDS: Propranolol 40 MG TAB PO SCH (08:14)
[2023-07-27] MEDS: Famotidine 20 MG TAB PO SCH (08:15)
[2023-07-27] MEDS: Methocarbamol 500 MG TAB PO SCH (08:15)
[2023-07-27] MEDS: FLUoxetine HCl 20 MG CAP PO SCH (08:15)
[2023-07-27] MEDS: Nitrofurantoin Monohyd/M-Cryst 100 MG CAP PO SCH (08:15)
[2023-07-27] MEDS: Propylthiouracil 50 MG TAB PO SCH (08:15)
== END 2023-07-27 09:33 | DRG 690 ==
LOC: ERS 13:56 → 2NO 17:01
PROVIDERS: ADMIT Hospitalist; ATTEND Internal Medicine
DX: N39.0 Urinary tract infection, site not specified (principal); F32.3 Major depressive disorder, single episode, severe with psychotic features; R45.851 Suicidal ideations; E05.90 Thyrotoxicosis, unspecified without thyrotoxic crisis or storm; F41.9 Anxiety disorder, unspecified; G89.29 Other chronic pain; E87.6 Hypokalemia; E03.9 Hypothyroidism, unspecified; R07.89 Other chest pain; Z91.148 Patient's other noncompliance with medication regimen for other reason; Z79.899 Other long term (current) drug therapy; Z90.710 Acquired absence of both cervix and uterus; Z90.49 Acquired absence of other specified parts of digestive tract; Z82.49 Family history of ischemic heart disease and other diseases of the circulatory system; Z87.891 Personal history of nicotine dependence; S42.011 Anterior displaced fracture of sternal end of right clavicle
CPT/HCPCS: 36415; 70450; 71045; 72125; 80048; 80053; 80306; 80307; 81001; 84443; 85025; 86376; 86800; 87086; 93005; 96365; J0696; J3490; J7120

== ENCOUNTER 2023-08-16 06:44 | Observation (INO) | payer MEDICARE ==
[2023-08-16 07:16] LABS: #Basophils 0.1 thou/uL (0.0-0.2); #Eosinphils 0.1 thou/uL (0.0-0.7); #Monocytes 0.8 thou/uL (0.11-0.59); #Neutrophils 7.5 thou/uL (1.40-6.50); %Basophils 0.5 % (0.0-1.0); %Eosinophils 0.7 % (0.0-10.0); %Lymphocytes 23.7 % (21.0-51.0); %Monocytes 6.9 % (0.0-10.0); %Neutrophils 67.8 % (42.0-75.0); Hematocrit 36.4 % (36.0-47.0); Hemoglobin 12.7 g/dL (12.0-16.0); Mean Corpuscular HGB CONC 34.9 g/dL (32.0-36.0); Mean Corpuscular Hemoglobin 32.4 pg (27.0-31.0); Mean Corpuscular Volume 92.9 fl (78.0-98.0); Mean Platelet Volume 10.3 fL (7.4-10.4); Platelet Count 254 10x3/uL (130-400); RBC Distribution Width 13.2 % (11.5-14.5); Red Blood Cell (RBC) Count 3.92 mill/uL (4.20-5.40); White Blood Cell (WBC) Count 11.1 10x3/uL (4.8-10.8)
[2023-08-16] MEDS ORDERED: Ketorolac Tromethamine 30 MG/ML VIAL ONE (07:24)
[2023-08-16] MEDS ORDERED: Ondansetron PF 4 MG/2 ML Vial ONE (07:24)
[2023-08-16 07:47] LABS: ALT (SGPT) 162 U/L (8-55); AST (SGOT) 82 U/L (5-34); Alkaline Phosphatase 206 U/L (40-110); Anion Gap 15 mmol/L (10-20); BUN (Urea Nitrogen) 14 mg/dL (9.8-20.1); Bilirubin, Total 1.1 mg/dL (0.2-1.2); Calc. Creatinine Clearance 0 mL/min (70-130); Calcium 9.7 mg/dL (7.8-10.44); Carbon Dioxide 23 mmol/L (22-29); Chloride 104 mmol/L (98-107); Estimated GFR 88; Globulin 2.2 g/dL (2.4-3.5); Glucose 92 mg/dL (70-105); Potassium 3.7 mmol/L (3.5-5.1); Protein, Total 7.2 g/dL (6.0-8.3); Sodium 138 mmol/L (136-145)
[2023-08-16] MEDS ORDERED: Morphine 4 MG/ML VIAL ONE ×2 (07:48→11:00)
[2023-08-16 07:58] LABS: #Basophils 0.1 thou/uL (0.0-0.2); #Eosinphils 0.1 thou/uL (0.0-0.7); #Monocytes 0.9 thou/uL (0.11-0.59); #Neutrophils 9.2 thou/uL (1.40-6.50); %Basophils 0.6 % (0.0-1.0); %Eosinophils 0.6 % (0.0-10.0); %Lymphocytes 17.3 % (21.0-51.0); %Neutrophils 74.2 % (42.0-75.0); Hematocrit 36.1 % (36.0-47.0); Hemoglobin 12.9 g/dL (12.0-16.0); Mean Corpuscular HGB CONC 35.7 g/dL (32.0-36.0); Mean Corpuscular Hemoglobin 33.2 pg (27.0-31.0); Mean Platelet Volume 10.4 fL (7.4-10.4); Platelet Count 242 10x3/uL (130-400); RBC Distribution Width 13.3 % (11.5-14.5); Red Blood Cell (RBC) Count 3.88 mill/uL (4.20-5.40); White Blood Cell (WBC) Count 12.4 10x3/uL (4.8-10.8)
[2023-08-16 08:11] LABS: BHCG - Serum Negative (NEGATIVE); Pregs Control Background? CLEAR/WHITE (CLR/WHITE); Pregs Control Bar Appear? YES (CONTROL BAR)
[2023-08-16 08:24] LABS: ALT (SGPT) 159 U/L (8-55); AST (SGOT) 78 U/L (5-34); Albumin 4.8 g/dL (3.5-5.0); Alkaline Phosphatase 204 U/L (40-110); Anion Gap 16 mmol/L (10-20); BUN (Urea Nitrogen) 14 mg/dL (9.8-20.1); Bilirubin, Total 1.1 mg/dL (0.2-1.2); Calc. Creatinine Clearance 0 mL/min (70-130); Calcium 9.5 mg/dL (7.8-10.44); Carbon Dioxide 20 mmol/L (22-29); Chloride 104 mmol/L (98-107); Estimated GFR 103; Globulin 2.4 g/dL (2.4-3.5); Glucose 88 mg/dL (70-105); Potassium 3.7 mmol/L (3.5-5.1); Protein, Total 7.2 g/dL (6.0-8.3); Sodium 136 mmol/L (136-145)
[2023-08-16 12:12] LABS: Bilirubin Unable to Interpret (Negative); Blood, Urine Unable to Interpret (Negative); Clarity Hazy (Clear); Glucose, Urine (Dipstick) Unable to Interpret mg/dL (Negative); Ketone, Urine Unable to Interpret mg/dL (Negative); Leukocyte Unable to Interpret Leu/uL (Negative); Nitrite Unable to Interpret (Negative); Protein, Urine (Dipstick) Unable to Interpret mg/dL (Neg-Trace); Urobilinogen UNABLE TO INTERPRET mg/dL (Less than 2); pH, Urine 5.9 (5.0-9.0)
[2023-08-16 12:18] LABS: Bacteria/HPF 1+ HPF (None Seen); CAUTI Indications for Culture Dysuria,urgency,freq; RBC/HPF Greater than 50 HPF (0-3)
[2023-08-16 12:19] LABS: Urine Culture Reflex No No
[2023-08-16] MEDS ORDERED: Sodium Chloride 0.9% 100 ML ONE (12:58)
[2023-08-16] MEDS ORDERED: cefTRIAXone (ROCEPHIN) 2 GM VIAL ONE (12:58)
[2023-08-16] MEDS ORDERED: Senokot S 8.6-50 MG TAB PO PRN (13:49)
[2023-08-16] MEDS ORDERED: HYDROcodone/Acetaminophen 5/325 mg Tablet PO PRN (13:49)
[2023-08-16] MEDS ORDERED: Guaifenesin DM 100-10/5 ML UDCUP PO PRN (13:49)
[2023-08-16] MEDS ORDERED: Ondansetron PF 4 MG/2 ML Vial IVP PRN (13:49)
[2023-08-16] MEDS ORDERED: Acetaminophen 325 MG TAB PO PRN (13:49)
[2023-08-16] MEDS ORDERED: Acetaminophen 650 MG Suppository PR PRN (13:49)
[2023-08-16] MEDS ORDERED: Ondansetron ODT 4 MG TAB PO PRN (13:49)
[2023-08-16 14:50] VITALS: BMI 23.0
[2023-08-16] MEDS: Propylthiouracil 50 MG TAB PO SCH ×2 (17:57→20:28)
[2023-08-16] MEDS: HYDROcodone/Acetaminophen 5/325 mg Tablet PO PRN (19:38)
[2023-08-16] MEDS: Mirtazapine 30 MG TAB PO SCH (20:28)
[2023-08-16] MEDS: Propranolol 40 MG TAB PO SCH (20:28)
[2023-08-17] MEDS: HYDROcodone/Acetaminophen 5/325 mg Tablet PO PRN ×2 (00:41→16:58)
[2023-08-17] MEDS ORDERED: Morphine 2 MG/ML VIAL SLOW IVP SCH (01:30)
[2023-08-17] MEDS: ALPRAZolam 1 MG TAB PO PRN ×2 (04:40→20:25)
[2023-08-17 05:18] LABS: #Basophils 0.1 thou/uL (0.0-0.2); #Eosinphils 0.1 thou/uL (0.0-0.7); #Monocytes 0.5 thou/uL (0.11-0.59); #Neutrophils 2.9 thou/uL (1.40-6.50); %Eosinophils 1.9 % (0.0-10.0); %Lymphocytes 42.1 % (21.0-51.0); %Monocytes 7.9 % (0.0-10.0); %Neutrophils 46.8 % (42.0-75.0); Hematocrit 33.7 % (36.0-47.0); Hemoglobin 11.5 g/dL (12.0-16.0); Mean Corpuscular HGB CONC 34.1 g/dL (32.0-36.0); Mean Corpuscular Hemoglobin 31.9 pg (27.0-31.0); Mean Corpuscular Volume 93.4 fl (78.0-98.0); Mean Platelet Volume 10.8 fL (7.4-10.4); Platelet Count 214 10x3/uL (130-400); RBC Distribution Width 13.2 % (11.5-14.5); Red Blood Cell (RBC) Count 3.61 mill/uL (4.20-5.40); White Blood Cell (WBC) Count 6.2 10x3/uL (4.8-10.8)
[2023-08-17 05:43] LABS: Anion Gap 14 mmol/L (10-20); BUN (Urea Nitrogen) 19 mg/dL (9.8-20.1); Calc. Creatinine Clearance 82 mL/min (70-130); Carbon Dioxide 23 mmol/L (22-29); Chloride 108 mmol/L (98-107); Estimated GFR 99; Glucose 102 mg/dL (70-105); Potassium 3.8 mmol/L (3.5-5.1); Sodium 141 mmol/L (136-145)
[2023-08-17 06:03] LABS: Free T4 (Free Thyroxine) 1.05 ng/dL (0.70-1.48); Thyroid Stimulating Hormone 0.188 uIU/mL (0.35-4.94)
[2023-08-17] MEDS ORDERED: Morphine 2 MG/ML VIAL SLOW IVP PRN (08:57)
[2023-08-17] MEDS ORDERED: Ketorolac Tromethamine 30 MG/ML VIAL IVP PRN (08:57)
[2023-08-17] MEDS ORDERED: FLUoxetine HCl 20 MG CAP PO SCH (09:00)
[2023-08-17] MEDS: Propylthiouracil 50 MG TAB PO SCH ×3 (09:22→20:23)
[2023-08-17] MEDS: Propranolol 40 MG TAB PO SCH ×2 (09:26→20:23)
[2023-08-17] MEDS ORDERED: Nicotine 21 MG PATCH TD SCH (10:30)
[2023-08-17] MEDS ORDERED: cefTRIAXone (ROCEPHIN) 2 GM VIAL ONE (12:50)
[2023-08-17] MEDS ORDERED: Sodium Chloride 0.9% 100 ML ONE (12:51)
[2023-08-17] MEDS ORDERED: Dexamethasone 4 mg/ml Vial ONE (12:55)
[2023-08-17] MEDS ORDERED: PROPOFOL 20 ML ONE (12:55)
[2023-08-17] MEDS ORDERED: Fentanyl 250 MCG/5 ML VIAL ONE (12:55)
[2023-08-17] MEDS ORDERED: Lidocaine 2% PF 5 ML VIAL ONE (12:55)
[2023-08-17] MEDS ORDERED: cefTRIAXone\\ROCEPHIN 2 GM in Sodium Chloride 0.9% 100 ML IVPB SCH (13:00)
[2023-08-17] MEDS ORDERED: Ketorolac Tromethamine 30 MG/ML VIAL ONE (13:13)
[2023-08-17] MEDS ORDERED: PROPOFOL 200 MG/20 ML VIAL ONE (13:13)
[2023-08-17] MEDS ORDERED: Dexamethasone 20 MG/5 ML VIAL ONE (13:13)
[2023-08-17] MEDS ORDERED: Lidocaine 1% PF 5 ML VIAL ONE (13:13)
[2023-08-17] MEDS ORDERED: Ondansetron PF 4 MG/2 ML Vial ONE (13:13)
[2023-08-17] MEDS ORDERED: Oxybutynin 5 MG TAB PO PRN (13:30)
[2023-08-17] MEDS ORDERED: Acetaminophen 500 MG TAB PO PRN (13:30)
[2023-08-17] MEDS ORDERED: HYDROmorphone 2 MG/ML VIAL SLOW IVP PRN (13:47)
[2023-08-17] MEDS ORDERED: Ondansetron HCl/PF 4 MG/2 ML Vial IVP PRN (13:47)
[2023-08-17] MEDS ORDERED: Promethazine HCl 25 MG/ML VIAL IM PRN (13:47)
[2023-08-17] MEDS: Phenazopyridine HCl 100 MG TAB PO SCH ×2 (15:59→20:28)
[2023-08-17] MEDS: Mirtazapine 30 MG TAB PO SCH (20:29)
[2023-08-18] MEDS: HYDROcodone/Acetaminophen 5/325 mg Tablet PO PRN (04:39)
[2023-08-18 07:45] LABS: #Eosinphils 0.1 thou/uL (0.0-0.7); #Monocytes 0.5 thou/uL (0.11-0.59); #Neutrophils 4.2 thou/uL (1.40-6.50); %Basophils 0.6 % (0.0-1.0); %Lymphocytes 27.7 % (21.0-51.0); %Monocytes 6.9 % (0.0-10.0); %Neutrophils 62.8 % (42.0-75.0); Hematocrit 33.5 % (36.0-47.0); Hemoglobin 11.4 g/dL (12.0-16.0); Mean Corpuscular Hemoglobin 32.3 pg (27.0-31.0); Mean Corpuscular Volume 94.9 fl (78.0-98.0); Platelet Count 186 10x3/uL (130-400); RBC Distribution Width 13.2 % (11.5-14.5); Red Blood Cell (RBC) Count 3.53 mill/uL (4.20-5.40); White Blood Cell (WBC) Count 6.6 10x3/uL (4.8-10.8)
[2023-08-18 08:07] LABS: Anion Gap 11 mmol/L (10-20); BUN (Urea Nitrogen) 15 mg/dL (9.8-20.1); Calc. Creatinine Clearance 75 mL/min (70-130); Calcium 8.8 mg/dL (7.8-10.44); Carbon Dioxide 24 mmol/L (22-29); Chloride 109 mmol/L (98-107); Estimated GFR 88; Glucose 123 mg/dL (70-105); Potassium 3.9 mmol/L (3.5-5.1); Sodium 140 mmol/L (136-145)
[2023-08-18] MEDS ORDERED: ALPRAZolam 0.5 MG TAB PO PRN (08:33)
[2023-08-18 08:56] VITALS: BP 128/83; TEMP 98.5
[2023-08-18] MEDS ORDERED: Venlafaxine HCl XR 150 MG CAP PO SCH (09:00)
[2023-08-18] MEDS ORDERED: Propranolol 40 MG TAB PO SCH (09:00)
[2023-08-18] MEDS ORDERED: Nicotine 21 MG PATCH TD SCH (09:00)
[2023-08-18] MEDS: Phenazopyridine HCl 100 MG TAB PO SCH (09:04)
[2023-08-18] MEDS: Propylthiouracil 50 MG TAB PO SCH (09:04)
[2023-08-18] MEDS ORDERED: Mirtazapine 30 MG TAB PO SCH (21:00)
== END 2023-08-18 11:53 | disposition home or self-care (01) ==
LOC: ERS 06:44 → SURG A 13:32
PROVIDERS: ADMIT Emergency Medicine; ATTEND Family Medicine
PROC: 0WHR8YZ Insertion of Other Device into Genitourinary Tract, Via Natural or Artificial Opening Endoscopic (ICD-10-PCS; principal; 2023-08-17)
DX: N13.2 Hydronephrosis with renal and ureteral calculous obstruction (principal); R00.0 Tachycardia, unspecified; E03.9 Hypothyroidism, unspecified; F32.A Depression, unspecified; Z90.710 Acquired absence of both cervix and uterus; Z90.49 Acquired absence of other specified parts of digestive tract; Z87.891 Personal history of nicotine dependence
CPT/HCPCS: 52332; 74176; 74420; 80048 ×2; 80053 ×2; 81001; 83605; 84439; 84443; 84481; 84703; 85025 ×4; 87040; 87086; 96361; 96365; 96375; 96376 ×2; 99285; C2617; G0378 ×3; 36415; J0696; J1100; J1885; J2001; J2270; J2272; J2405; J2704; J3010; J3490

== ENCOUNTER 2023-08-22 06:19 | Day surgery (SDC) | payer MEDICARE ==
[2023-08-19 13:34] VITALS: BMI 24.3
[2023-08-22 08:03] LABS: Prothrombin Time 13.8 sec (12.0-14.7)
[2023-08-22] MEDS ORDERED: LevoFLOXacin D5W 500 mg (100 mL) BAG ONE (08:39)
[2023-08-22] MEDS ORDERED: Iopamidol 15 ML ONE (08:48)
[2023-08-22] MEDS ORDERED: Lidocaine 1% PF 5 ML VIAL ONE ×2 (08:56→09:15)
[2023-08-22] MEDS ORDERED: fentaNYL PF 100 MCG/2 ML SYRINGE ONE ×2 (08:56→09:35)
[2023-08-22] MEDS ORDERED: Ondansetron PF 4 MG/2 ML Vial ONE ×2 (08:56→09:15)
[2023-08-22] MEDS ORDERED: PROPOFOL 20 ML ONE (08:56)
[2023-08-22] MEDS ORDERED: Rocuronium Bromide 10 MG/ML (10ML VIAL) ONE ×2 (08:56→09:15)
[2023-08-22] MEDS ORDERED: Esmolol 100 MG/10 ML VIAL ONE ×2 (09:15→10:05)
[2023-08-22] MEDS ORDERED: PROPOFOL 200 MG/20 ML VIAL ONE (09:15)
[2023-08-22] MEDS ORDERED: SUGAMMADEX SODIUM 200 MG/2 ML VIAL ONE ×2 (09:52→10:11)
[2023-08-22] MEDS ORDERED: Labetalol HCl 100 MG/20 ML VIAL ONE (10:27)
[2023-08-22] MEDS ORDERED: fentaNYL 50 mcg/mL 1 mL Vial ONE ×2 (10:30→10:46)
[2023-08-22] MEDS ORDERED: Oxybutynin 5 MG TAB ONE (10:36)
[2023-08-22] MEDS ORDERED: Phenazopyridine HCl 100 MG TAB ONE (10:37)
[2023-08-22] MEDS ORDERED: HYDROmorphone 0.5 MG/0.5 ML SYRINGE ONE ×2 (11:18→11:42)
[2023-08-31 06:13] LABS: CA Oxalate Dihydrate 60 % (.); CA Oxalate Monohydrate 35 % (.); Color Brown (.)
== END 2023-08-22 13:00 | disposition home or self-care (01) ==
LOC: SDC 06:19
PROVIDERS: ATTEND Urology
PROC: 0TC08ZZ Extirpation of Matter from Right Kidney, Via Natural or Artificial Opening Endoscopic (ICD-10-PCS; principal; 2023-08-22)
PROC: 0TC68ZZ Extirpation of Matter from Right Ureter, Via Natural or Artificial Opening Endoscopic (ICD-10-PCS; 2023-08-22)
PROC: 0T768DZ Dilation of Right Ureter with Intraluminal Device, Via Natural or Artificial Opening Endoscopic (ICD-10-PCS; 2023-08-22)
DX: N13.2 Hydronephrosis with renal and ureteral calculous obstruction (principal); I12.9 Hypertensive chronic kidney disease with stage 1 through stage 4 chronic kidney disease, or unspecified chronic kidney disease; F15.10 Other stimulant abuse, uncomplicated; F32.9 Major depressive disorder, single episode, unspecified; E05.90 Thyrotoxicosis, unspecified without thyrotoxic crisis or storm; Z90.710 Acquired absence of both cervix and uterus; Z90.49 Acquired absence of other specified parts of digestive tract; Z79.899 Other long term (current) drug therapy; N18.9 Chronic kidney disease, unspecified
CPT/HCPCS: 52356; 74018; 74420; 82365; 85610; 85730; C1747; C1769; C2617; J3010; 88300; J1170; J1956; J2405; J2704; Q9967

== ENCOUNTER 2023-09-07 07:09 | Emergency (ER) | payer MEDICARE ==
[2023-09-07 08:12] LABS: Bilirubin Small (Negative); Blood, Urine Moderate (Negative); Glucose, Urine (Dipstick) Negative (Negative); Ketone, Urine 40 mg/dL (Negative); Leukocyte Moderate (Negative); Nitrite Positive (Negative); Protein, Urine (Dipstick) 30 mg/dL (Neg-Trace); Specific Gravity, Urine 1.025 (1.005-1.030); Urobilinogen 0.2 mg/dL (Less than 2)
[2023-09-07 08:14] LABS: Clarity Clear (Clear)
[2023-09-07] MEDS ORDERED: Ketorolac Tromethamine 30 MG/ML VIAL ONE (08:21)
[2023-09-07 08:22] LABS: Bacteria/HPF 1+ HPF (None Seen); CAUTI Indications for Culture Dysuria,urgency,freq; RBC/HPF 0-3 HPF (0-3); Squamous Epithelial 0-3 HPF (0-3); WBC/HPF Greater Than 50 HPF (0-3)
[2023-09-07 08:24] LABS: Urine Culture Reflex Yes Yes
[2023-09-07 08:29] LABS: #Basophils 0.1 thou/uL (0.0-0.2); #Eosinphils 0.1 thou/uL (0.0-0.7); #Monocytes 0.5 thou/uL (0.11-0.59); #Neutrophils 7.4 thou/uL (1.40-6.50); %Basophils 0.6 % (0.0-1.0); %Eosinophils 0.5 % (0.0-10.0); %Lymphocytes 17.5 % (21.0-51.0); %Neutrophils 76.1 % (42.0-75.0); Hematocrit 34.2 % (36.0-47.0); Mean Corpuscular HGB CONC 35.1 g/dL (32.0-36.0); Mean Corpuscular Hemoglobin 31.7 pg (27.0-31.0); Mean Corpuscular Volume 90.5 fl (78.0-98.0); Mean Platelet Volume 10.3 fL (7.4-10.4); Platelet Count 270 10x3/uL (130-400); RBC Distribution Width 12.2 % (11.5-14.5); Red Blood Cell (RBC) Count 3.78 mill/uL (4.20-5.40); White Blood Cell (WBC) Count 9.7 10x3/uL (4.8-10.8)
[2023-09-07 08:56] LABS: ALT (SGPT) 8 U/L (8-55); AST (SGOT) 17 U/L (5-34); Albumin 4.2 g/dL (3.5-5.0); Alkaline Phosphatase 110 U/L (40-110); Anion Gap 15 mmol/L (10-20); BUN (Urea Nitrogen) 14 mg/dL (9.8-20.1); Bilirubin, Total 0.4 mg/dL (0.2-1.2); Calc. Creatinine Clearance 0 mL/min (70-130); Calcium 9.8 mg/dL (7.8-10.44); Carbon Dioxide 24 mmol/L (22-29); Chloride 107 mmol/L (98-107); Estimated GFR 82; Glucose 84 mg/dL (70-105); Protein, Total 7.2 g/dL (6.0-8.3); Sodium 142 mmol/L (136-145)
[2023-09-07] MEDS ORDERED: Sodium Chloride 0.9% 100 ML ONE (09:46)
[2023-09-07] MEDS ORDERED: cefTRIAXone (ROCEPHIN) 2 GM VIAL ONE (09:46)
== END 2023-09-07 10:25 | disposition home or self-care (01) ==
LOC: MERGE 07:09 → ERS 07:09
DX: N30.00 Acute cystitis without hematuria (principal); M54.50 Low back pain, unspecified; F17.210 Nicotine dependence, cigarettes, uncomplicated; E03.9 Hypothyroidism, unspecified; Z79.899 Other long term (current) drug therapy
CPT/HCPCS: 74176; 80053; 81001; 85025; 87086; 96365; 96375; J0696; J1885; J3490

== ENCOUNTER 2024-03-22 20:26 | Emergency (ER) | payer MEDICARE ==
[2024-03-22] MEDS ORDERED: Acetaminophen 325 MG TAB ONE (22:03)
[2024-03-22] MEDS ORDERED: Boostrix 0.5 ML (Tdap) VIAL (>/=7 yrs of age) ONE ×2 (22:04→22:17)
[2024-03-22] MEDS ORDERED: ALPRAZolam 1 MG TAB ONE (23:43)
[2024-03-23] MEDS ORDERED: Ibuprofen 200 MG TAB ONE (09:11)
[2024-03-23] MEDS ORDERED: Nicotine 14 MG PATCH ONE (09:11)
== END 2024-03-23 11:12 ==
LOC: EEVIPCON 20:26 → ERS 20:26
DX: R45.851 Suicidal ideations (principal); F17.210 Nicotine dependence, cigarettes, uncomplicated; Z23 Encounter for immunization
CPT/HCPCS: 90471; 90715